=== PATIENT | female | born 1990 | race Caucasian/White ===

== ENCOUNTER 2017-08-14 12:08 | Emergency (ER) | payer BC, MEDICARE ==
--- NOTE | 2017-08-14 13:51 | EDM.PDOC ---
ED HPI GENERAL MEDICAL PROBLEM - General Chief Complaint: ENT Problem Stated Complaint: TOOTH PAIN/PROBLEM Time Seen by Provider: 08/14/17 12:18 Source of Information: Reports: Patient History Limitations: Reports: No Limitations - History of Present Illness INITIAL COMMENTS - FREE TEXT/NARRATIVE: The patient presents with left lower jaw abscess and dental pain. This has stared a few weeks ago. She has drainage from it. She has chills but no fever. She has no dentist in town. She is currently 26 weeks . She will be seeing Dr Greenfield in a few weeks. She has been having more cramping lately but no spotting or discharge. She is feeling the baby move. She has some dysuria lately at the end of urinating. She has no appetite and some nausea at times. Onset: Gradual Duration: Day(s): Quality: Reports: Sharp Severity: Moderate Improves with: Reports: None Worsens with: Reports: None Associated Symptoms: Reports: Other (Cramping) Left Middle Tooth/Teeth Pain Score (Numeric/FACES): 8 - Related Data Allergies Allergy/AdvReac Type Severity Reaction Status Date / Time No Known Allergies Allergy Verified 08/14/17 12:22 Home Meds: Home Meds Penicillin V Potassium 500 mg PO Q6HR #40 tab 08/14/17 [Rx] Past Medical History - Past Health History Medical/Surgical History: Denies Medical/Surgical History Social & Family History - Tobacco Use Smoking Status *Q: Never Smoker - Caffeine Use Caffeine Use: Reports: None - Recreational Drug Use Recreational Drug Use: No ED ROS ENT - Review of Systems Review Of Systems: See Below Constitutional: Reports: Chills. Denies: Fever HEENT: Reports: No Symptoms Respiratory: Reports: No Symptoms Cardiovascular: Reports: No Symptoms Endocrine: Reports: No Symptoms GI/Abdominal: Reports: Abdominal Pain (Cramping), Nausea : Reports: Dysuria Musculoskeletal: Reports: No Symptoms Skin: Reports: No Symptoms ED EXAM, ENT - Physical Exam Exam: See Below Exam Limited By: No Limitations General Appearance: Alert, No Apparent Distress Ears: Normal External Exam Nose: Normal Inspection Mouth/Throat: Other (Erythema and edema to the left lower jaw near the canine tooth) Head: Atraumatic, Normocephalic Neck: Normal Inspection Respiratory/Chest: No Respiratory Distress, Lungs Clear, Normal Breath Sounds Cardiovascular: Regular Rate, Rhythm, No Edema, No Murmur GI/Abdominal: Soft, Non-Tender, No Mass, Other (Gravid uterus) Back: Normal Inspection Extremities: Normal Inspection Course - Vital Signs Last Recorded V/S: Last Vital Signs Temp 97.8 F 08/14/17 12:19 Pulse 88 08/14/17 12:19 Resp 16 08/14/17 12:19 BP 122/83 08/14/17 12:19 Pulse Ox 100 08/14/17 12:19 - Orders/Labs/Meds Orders: Active Orders 24 hr Category Date Time Status UA W/MICROSCOPIC [URIN] Stat Lab 08/14/17 13:10 Ordered Labs: Laboratory Tests 08/14/17 08/14/17 08/14/17 Range/Units 12:58 12:58 13:10 WBC 7.94 (3.98-10.04) K/mm3 RBC 4.06 (3.98-5.22) M/mm3 Hgb 12.5 (11.2-15.7) gm/L Hct 36.6 (34.1-44.9) % MCV 90.1 (79.4-94.8) fl MCH 30.8 (25.6-32.2) pg MCHC 34.2 (32.2-35.5) g/dl RDW Std Deviation 46.5 H (36.4-46.3) fL Plt Count 163 L (182-369) K/mm3 MPV 10.5 (9.4-12.3) fl Neut % (Auto) 61.9 (34.0-71.1) % Lymph % (Auto) 28.7 (19.3-51.7) % [place] % (Auto) 7.7 (4.7-12.5) % Eos % (Auto) 0.9 (0.7-5.8) Baso % (Auto) 0.3 (0.1-1.2) % Neut # (Auto) 4.92 (1.56-6.13) K/mm3 Lymph # (Auto) 2.28 (1.18-3.74) K/mm3 [place] # (Auto) 0.61 H (0.24-0.36) K/mm3 Eos # (Auto) 0.07 (0.04-0.36) K/mm3 Baso # (Auto) 0.02 (0.01-0.08) K/mm3 Sodium 137 (136-145) mEq/L Potassium 3.6 (3.5-5.1) mEq/L Chloride 104 (98-107) mEq/L Carbon Dioxide 22 (21-32) mEq/L Anion Gap 14.6 (5-15) BUN 10 (7-18) mg/dL Creatinine 0.6 (0.55-1.02) mg/dL Est Cr Clr Drug Dosing 121.62 mL/min Estimated GFR (MDRD) > 60 (>60) mL/min BUN/Creatinine Ratio 16.7 (14-18) Glucose 89 (74-106) mg/dL Calcium 8.5 (8.5-10.1) mg/dL Total Bilirubin 0.3 (0.2-1.0) mg/dL AST 16 (15-37) U/L ALT 31 (14-59) U/L Alkaline Phosphatase 71 (46-116) U/L Total Protein 6.3 L (6.4-8.2) g/dl Albumin 2.6 L (3.4-5.0) g/dl Globulin 3.7 gm/dL Albumin/Globulin Ratio 0.7 L (1-2) Urine Color Yellow (Yellow) Urine Appearance Clear (Clear) Urine pH 6.0 (5.0-8.0) Ur Specific [place] > or = 1.030 (1.005-1.030) Urine Protein Negative (Negative) Urine Glucose (UA) Negative (Negative) Urine Ketones Negative (Negative) Urine Occult Blood Negative (Negative) Urine Nitrite Negative (Negative) Urine Bilirubin Negative (Negative) Urine Urobilinogen 0.2 (0.2-1.0) Ur Leukocyte Esterase Negative (Negative) Urine RBC 0-5 (0-5) /hpf Urine WBC 0-5 (0-5) /hpf Ur Epithelial Cells 0-5 (0-5) /hpf Urine Bacteria Not seen (FEW) /hpf Urine Mucus Not seen (FEW) /hpf - Re-Assessments/Exams Free Text/Narrative Re-Assessment/Exam: 08/14/17 13:51 I ordered some labs and a UA. 08/14/17 13:57 Her CBC and CMP look good. Her UA shows no UTI. FHTs were 148. I will get her on some pen VK and follow up with Dr Greenfield. Departure - Departure Time of Disposition: 14:00 Disposition: Home, Self-Care 01 Condition: Good Clinical Impression: Dental abscess - Discharge Information Prescriptions: Penicillin V Potassium 500 mg PO Q6HR #40 tab Referrals: Cary Greenfield MD [Primary Care Provider] - Forms: ED Department Discharge Additional Instructions: Take the penicillin VK 1 pill 4 times per day for 10 days. Take tylenol for the pain. Please return if you are worse. - My Orders Last 24 Hours: My Active Orders 08/14/17 13:10 UA W/MICROSCOPIC [URIN] Stat - Assessment/Plan Last 24 Hours: My Active Orders 08/14/17 13:10 UA W/MICROSCOPIC [URIN] Stat
== END 2017-08-14 14:05 | disposition home or self-care (01) ==
LOC: JD.ED 12:08
DX: K04.7 Periapical abscess without sinus (principal)
CPT/HCPCS: 36415; 80053; 81001; 85025; 99283

== ENCOUNTER 2017-11-17 17:00 | Inpatient (IN) | payer MEDICARE, MEDICAID ==
[2017-11-17] MEDS ORDERED: Nalbuphine 20 MG/ML 1 ML Syringe IVPUSH PRN (17:45)
[2017-11-17] MEDS ORDERED: Sodium Chloride 0.9% 10 ML Syringe FLUSH PRN (17:45)
[2017-11-17] MEDS ORDERED: Ondansetron 4 MG/2 ML SDV IVPUSH PRN ×2 (17:45→20:43)
[2017-11-17] MEDS ORDERED: Oxytocin/Lactated Ringers 10 UNIT/1,000 ML BAG IV SCH ×2 (17:45)
--- NOTE | 2017-11-17 18:04 | PCM.HP ---
H&P History of Present Illness - General Date of Service: 11/17/17 Source of Information: Patient History Limitations: Reports: No Limitations - History of Present Illness Onset of Symptoms: Reports: Today - Related Data Allergies/Adverse Reactions: Allergies Allergy/AdvReac Type Severity Reaction Status Date / Time No Known Allergies Allergy Verified 10/29/17 00:38 Home Medications: Home Meds Penicillin V Potassium 500 mg PO Q6HR #40 tab 08/14/17 [Rx] Past Medical History - Past Health History Medical/Surgical History: Denies Medical/Surgical History Social & Family History - Caffeine Use Caffeine Use: Reports: None Exam - Vital Signs Weight: 202 lb
--- NOTE | 2017-11-17 18:25 | PCM.SN ---
<Hillary Mcguire - Last Filed: 11/17/17 18:28> - Free Text/Narrative Note: 26 year old presents today with SROM. GA 40 weeks 0 days with JUAN of based on ultrasound. She is currently only having mild, inconsistent contractions. She desires an epidural with this delivery. At her last visit on 11/15 she was 3 cm dilated, 50% effaced, at -2 position. BP 114/74. heart rate 140 bpm. She is GBS negative and rubella immune. Blood type O negative. She is negative for HIV, Hep B, syphilis, chlamydia, and gonorrhea. She initiated care with Dr. Greenfield on 2017 - she had been seen for care in [place] prior to that. She had rhogram at that time. She reports a MRSA infection in May of this year. She has had no other complications during the and reports no other medical conditions. Her only current medication is a vitamin. She denies significant PMH or FH. She is currently living in [place]. She has had two previous pregnancies and deliveries, a girl born in 2008 at 40 weeks 3 days and a boy born in 2012 at 39 weeks 6 days. Both occurred via spontaneous vaginal delivery and were uncomplicated. She had epidurals with both. Plan: Continue standard OB care Initiate pitocin Epidural during delivery Rh- plan for rhogram following delivery Hillary Mcguire, MS-3. Dr. Yañez has examined the patient and reviewed the plan. <Helen Yañez - Last Filed: 11/17/17 18:38> - Free Text/Narrative Note: Exam: Vitals reviewed FHT 150 TOCOq 2-3 HEENT: NCAT Resp: Unlabored CV: S1S2 Abd: Gravid, non-tender See plan above
[2017-11-17] MEDS ORDERED: diphenhydrAMINE 50 MG/ML SDV IVPUSH PRN (20:43)
[2017-11-17] MEDS ORDERED: fentaNYL 100 MCG/2 ML SDV EPIDUR PRN (20:43)
[2017-11-17] MEDS ORDERED: ePHEDrine 50 MG/ML SDV IVPUSH PRN (20:43)
[2017-11-17] MEDS ORDERED: Bupivacaine/fentaNYL/NS 100 ML Bag EPIDUR SCH (20:45)
[2017-11-17] MEDS ORDERED: Bupivacaine 0.25% 10 ML SDV ONE (22:00)
[2017-11-17] MEDS: Lactated Ringers 1,000 ML IV SCH ×2 (22:25→23:30)
--- NOTE | 2017-11-17 23:51 | PCM.PREANE ---
Preanesthetic Assessment - Anesthesia/Transfusion/Family Hx Anesthesia History: Prior Anesthesia Without Reaction Family History of Anesthesia Reaction: No - Review of Systems General: No Symptoms Pulmonary: No Symptoms Cardiovascular: No Symptoms Gastrointestinal: Other (GERD) Neurological: No Symptoms Other: Reports: None - Physical Assessment Pulse: 83 O2 Sat by Pulse Oximetry: 98 Respiratory Rate: 18 Blood Pressure: 133/75 Temperature: 36.4 C Height: 1.63 m Weight: 91.626 kg ASA Class: 2 Mental Status: Alert & Oriented x3 Airway Class: Mallampati = 1 Dentition: Reports: Normal Dentition Thyro-Mental Finger Breadths: 3 Mouth Opening Finger Breadths: 3 ROM/Head Extension: Full Lungs: Clear to Auscultation, Normal Respiratory Effort Cardiovascular: Regular Rate, Regular Rhythm - Lab Values: Laboratory Last Values WBC 9.55 K/mm3 (3.98-10.04) 11/17/17 19:13 RBC 4.10 M/mm3 (3.98-5.22) 11/17/17 19:13 Hgb 12.4 gm/L (11.2-15.7) 11/17/17 19:13 Hct 37.1 % (34.1-44.9) 11/17/17 19:13 MCV 90.5 fl (79.4-94.8) 11/17/17 19:13 MCH 30.2 pg (25.6-32.2) 11/17/17 19:13 MCHC 33.4 g/dl (32.2-35.5) 11/17/17 19:13 RDW Std Deviation 48.8 fL (36.4-46.3) H 11/17/17 19:13 Plt Count 173 K/mm3 (182-369) L 11/17/17 19:13 MPV 10.9 fl (9.4-12.3) 11/17/17 19:13 Neut % (Auto) 71.9 % (34.0-71.1) H 11/17/17 19:13 Lymph % (Auto) 21.2 % (19.3-51.7) 11/17/17 19:13 [place] % (Auto) 5.8 % (4.7-12.5) 11/17/17 19:13 Eos % (Auto) 0.5 (0.7-5.8) L 11/17/17 19:13 Baso % (Auto) 0.2 % (0.1-1.2) 11/17/17 19:13 Neut # (Auto) 6.87 K/mm3 (1.56-6.13) H 11/17/17 19:13 Lymph # (Auto) 2.02 K/mm3 (1.18-3.74) 11/17/17 19:13 [place] # (Auto) 0.55 K/mm3 (0.24-0.36) H 11/17/17 19:13 Eos # (Auto) 0.05 K/mm3 (0.04-0.36) 11/17/17 19:13 Baso # (Auto) 0.02 K/mm3 (0.01-0.08) 11/17/17 19:13 - Allergies Allergies/Adverse Reactions: Allergies Allergy/AdvReac Type Severity Reaction Status Date / Time No Known Allergies Allergy Verified 10/29/17 00:38 - Acknowledgements Anesthesia Type Planned: Epidural Pt an Appropriate Candidate for the Planned Anesthesia: Yes Alternatives and Risks of Anesthesia Discussed w Pt/Guardian: Yes Pt/Guardian Understands and Agrees with Anesthesia Plan: Yes Additional Comments: Residual numbness from previous epidural that went down her leg and a spot on her abdomen. Resolved after several weeks. Nancy understands that this may happen again. She wishes to proceed. PreAnesthesia Questionnaire - Past Health History Medical/Surgical History: Denies Medical/Surgical History - HOME MEDS Home Medications: Home Meds Penicillin V Potassium 500 mg PO Q6HR #40 tab 08/14/17 [Rx] - CURRENT (IN HOUSE) MEDS Current Meds: Current Medications Diphenhydramine HCl (Benadryl) 25 mg IVPUSH Q6H PRN PRN Reason: Pruritis Ephedrine Sulfate (Ephedrine Sulfate) 5 mg IVPUSH ASDIRECTED PRN PRN Reason: Hypotension Fentanyl (Sublimaze) 100 mcg EPIDUR ONETIME PRN PRN Reason: Pain Last Admin: 11/17/17 23:47 Dose: 100 mcg Fentanyl/Bupivacaine HCl (Fentanyl/Bupivacaine/Ns 2 Mcg-0.125% 100 Ml) 100 ml EPIDUR ASDIRECTED RADHA Last Admin: 11/17/17 23:47 Dose: 100 ml Lactated Ringer's (Ringers, Lactated) 1,000 mls @ 100 mls/hr IV ASDIRECTED RADHA Last Infusion: 11/17/17 22:28 Dose: 999 mls/hr Oxytocin/Lactated Ringer's (Pitocin In Lr 10 Units/1,000 Ml) 10 unit in 1,000 mls @ 12 mls/hr IV TITRATE RADHA; Protocol Oxytocin/Lactated Ringer's (Pitocin In Lr 10 Units/1,000 Ml) 10 unit in 1,000 mls @ 500 mls/hr IV .CONTINUOUS RADHA Nalbuphine HCl (Nubain) 10 mg IVPUSH Q2H PRN PRN Reason: pain Ondansetron HCl (Zofran) 4 mg IVPUSH Q4H PRN PRN Reason: Nausea/Vomiting Ondansetron HCl (Zofran) 4 mg IVPUSH ONETIME PRN PRN Reason: Nausea/Vomiting Sodium Chloride (Saline Flush) 10 ml FLUSH ASDIRECTED PRN PRN Reason: Keep Vein Open
--- NOTE | 2017-11-18 00:24 | PCM.PNLD ---
Labor Progress Note - VS & Meds Vital Signs: Last Vital Signs Temp 36.4 C 11/17/17 23:51 Pulse 83 11/17/17 23:51 Resp 18 11/17/17 23:51 BP 133/75 11/17/17 23:51 Pulse Ox 98 11/17/17 23:51 Active Medications: Current Medications Diphenhydramine HCl (Benadryl) 25 mg IVPUSH Q6H PRN PRN Reason: Pruritis Ephedrine Sulfate (Ephedrine Sulfate) 5 mg IVPUSH ASDIRECTED PRN PRN Reason: Hypotension Fentanyl (Sublimaze) 100 mcg EPIDUR ONETIME PRN PRN Reason: Pain Last Admin: 11/17/17 23:47 Dose: 100 mcg Fentanyl/Bupivacaine HCl (Fentanyl/Bupivacaine/Ns 2 Mcg-0.125% 100 Ml) 100 ml EPIDUR ASDIRECTED RADHA Last Admin: 11/17/17 23:47 Dose: 100 ml Lactated Ringer's (Ringers, Lactated) 1,000 mls @ 100 mls/hr IV ASDIRECTED RADHA Last Admin: 11/17/17 23:30 Dose: 999 mls/hr Oxytocin/Lactated Ringer's (Pitocin In Lr 10 Units/1,000 Ml) 10 unit in 1,000 mls @ 12 mls/hr IV TITRATE RADHA; Protocol Oxytocin/Lactated Ringer's (Pitocin In Lr 10 Units/1,000 Ml) 10 unit in 1,000 mls @ 500 mls/hr IV .CONTINUOUS RADHA Nalbuphine HCl (Nubain) 10 mg IVPUSH Q2H PRN PRN Reason: pain Ondansetron HCl (Zofran) 4 mg IVPUSH Q4H PRN PRN Reason: Nausea/Vomiting Ondansetron HCl (Zofran) 4 mg IVPUSH ONETIME PRN PRN Reason: Nausea/Vomiting Sodium Chloride (Saline Flush) 10 ml FLUSH ASDIRECTED PRN PRN Reason: Keep Vein Open - Uterine Contractions Uterine Monitoring Mode: External [place] Contraction Intensity: Moderate to Strong - Monitoring Monitor Mode: External Ultrasound Heart Rate (FHR) Per Doppler: 140 Heart Rate (FHR) Variability: Moderate (6-25 bmp) Accelerations: Present, 15x15 Decelerations: None Strip Review: Category I - Vaginal Exam Dilation (cm): 6 Effacement (Percent): 70 Station: -3 Cervical Position: Midposition - Labor Progress (Free Text) Labor Progress: AROM of forebag Clear fluid. Anticipate
[2017-11-18] MEDS: Lactated Ringers 1,000 ML IV SCH (01:01)
--- NOTE | 2017-11-18 03:50 | PCM.SN ---
- Free Text/Narrative Note: Stage I - Patient presented with spontaneous rupture of membranes clear fluid. Progressed to complete with overall reassuring heart tones. Epidural anesthesia. Stage II - of viable female, 7#4 oz, 11/05 at 331. Head delivered in controlled manner over intact perineum. Body and shoulders followed atraumatically. Baby to maternal abdomen. Positive cry. Cord clamped and cut. Cord blood collected. Family unwilling to support policy of no video and did film entire procedure although had signed form agreeing not to. Stage III - of intact placenta. 3vc. No lacerations. EBL 200.
[2017-11-18] MEDS ORDERED: Docusate Sodium 100 MG Cap PO PRN (04:59)
[2017-11-18] MEDS ORDERED: Lanolin 100% Cream 7 GM Tube TOP PRN (04:59)
[2017-11-18] MEDS ORDERED: Hydrocortisone Acetate 25 MG Supp RECTAL PRN (04:59)
[2017-11-18] MEDS ORDERED: Witch Hazel Medicated Pads 100/Jar TOP PRN (04:59)
[2017-11-18] MEDS ORDERED: Benzocaine/Menthol 20%-0.5% Spray 56 GM Canister TOP PRN (04:59)
[2017-11-18] MEDS ORDERED: Ibuprofen 200 MG Tab PO PRN (06:39)
[2017-11-18] MEDS: Ibuprofen 600 MG Tab PO PRN (13:48)
[2017-11-19] MEDS: Ibuprofen 600 MG Tab PO PRN (01:33)
--- NOTE | 2017-11-19 07:33 | PCM.DCSUM1 ---
Discharge Summary - Hospital Course Diagnosis: Stroke: No - Discharge Data Discharge Date: 11/19/17 Discharge Disposition: Home, Self-Care 01 Condition: Good - Patient Instructions Diet: Usual Diet as Tolerated Activity: No Strenuous Activities Activity, Other: pelvic Driving: May Drive Today Showering/Bathing: May Shower Notify Provider of: Fever, Increased Pain, Swelling and Redness, Drainage, Nausea and/or Vomiting - Discharge Plan *PRESCRIPTION DRUG MONITORING PROGRAM REVIEWED*: No *COPY OF PRESCRIPTION DRUG MONITORING REPORT IN PATIENT LUIS: No Home Medications: Home Meds Penicillin V Potassium 500 mg PO Q6HR #40 tab 08/14/17 [Rx] - Discharge Summary/Plan Comment DC Time >30 min.: No - General Info Date of Service: 11/19/17 Functional Status: Reports: Pain Controlled - Review of Systems General: Reports: No Symptoms HEENT: Reports: No Symptoms Pulmonary: Reports: No Symptoms Cardiovascular: Reports: No Symptoms Gastrointestinal: Reports: No Symptoms Genitourinary: Reports: No Symptoms Musculoskeletal: Reports: No Symptoms Skin: Reports: No Symptoms Neurological: Reports: No Symptoms Psychiatric: Reports: No Symptoms - Patient Data Vitals - Most Recent: Last Vital Signs Temp 36.5 C 11/19/17 03:11 Pulse 80 11/19/17 03:11 Resp 14 11/19/17 03:11 BP 117/81 11/19/17 03:11 Pulse Ox 98 11/19/17 03:11 Weight - Most Recent: 91.626 kg Lab Results - Last 24 hrs: Laboratory Results - last 24 hr 11/17/17 11/18/17 Range/Units 19:13 08:48 RPR Non-reactive (NONREACTIVE) Blood Type O NEGATIVE Gel Antibody Screen Negative Screen 0 ros/5 flds - neg RhIG Candidate? Yes Rhogam Indicated Yes, baby rh pos H Med Orders - Current: Current Medications Benzocaine/Menthol (Dermoplast Pain Relief [place]) 0 gm TOP ASDIRECTED PRN PRN Reason: Perineal Comfort Measure Docusate Sodium (Colace) 100 mg PO BID PRN PRN Reason: Constipation Emollient Ointment (Lansinoh Hpa) 0 gm TOP ASDIRECTED PRN PRN Reason: Sore Nipples Last Admin: 11/19/17 01:34 Dose: 1 tube Hydrocortisone Acetate (Anucort-Hc) 25 mg RECTAL BID PRN PRN Reason: Hemorrhoid pain Ibuprofen (Motrin) 600 mg PO Q4H PRN PRN Reason: Pain Last Admin: 11/19/17 01:33 Dose: 600 mg Witch Ting (Tucks) 1 pad TOP ASDIRECTED PRN PRN Reason: Hemorrhoid pain Discontinued Medications Diphenhydramine HCl (Benadryl) 25 mg IVPUSH Q6H PRN PRN Reason: Pruritis Ephedrine Sulfate (Ephedrine Sulfate) 5 mg IVPUSH ASDIRECTED PRN PRN Reason: Hypotension Fentanyl (Sublimaze) 100 mcg EPIDUR ONETIME PRN PRN Reason: Pain Last Admin: 11/17/17 23:47 Dose: 100 mcg Fentanyl/Bupivacaine HCl (Fentanyl/Bupivacaine/Ns 2 Mcg-0.125% 100 Ml) 100 ml EPIDUR ASDIRECTED RADHA Last Admin: 11/17/17 23:47 Dose: 100 ml Lactated Ringer's (Ringers, Lactated) 1,000 mls @ 100 mls/hr IV ASDIRECTED RADHA Last Admin: 11/18/17 01:01 Dose: 100 mls/hr Oxytocin/Lactated Ringer's (Pitocin In Lr 10 Units/1,000 Ml) 10 unit in 1,000 mls @ 12 mls/hr IV TITRATE RADHA; Protocol Oxytocin/Lactated Ringer's (Pitocin In Lr 10 Units/1,000 Ml) 10 unit in 1,000 mls @ 500 mls/hr IV .CONTINUOUS RADHA Last Admin: 11/18/17 03:30 Dose: 500 mls/hr Ibuprofen (Motrin) 600 mg PO Q4H PRN PRN Reason: Pain Last Admin: 11/18/17 06:30 Dose: 600 mg Nalbuphine HCl (Nubain) 10 mg IVPUSH Q2H PRN PRN Reason: pain Ondansetron HCl (Zofran) 4 mg IVPUSH Q4H PRN PRN Reason: Nausea/Vomiting Ondansetron HCl (Zofran) 4 mg IVPUSH ONETIME PRN PRN Reason: Nausea/Vomiting Sodium Chloride (Saline Flush) 10 ml FLUSH ASDIRECTED PRN PRN Reason: Keep Vein Open - Exam General: Reports: Alert, Oriented HEENT: Reports: Pupils Equal, Pupils Reactive, EOMI, Mucous Membr. Moist/[employer] Neck: Reports: Supple Lungs: Reports: Clear to Auscultation, Normal Respiratory Effort Cardiovascular: Reports: Regular Rate, Regular Rhythm GI/Abdominal Exam: Normal Bowel Sounds, Soft, Non-Tender, No Organomegaly, No Distention, No Abnormal Bruit, No Mass, Pelvis Stable (Female) Exam: Normal External Exam Back Exam: Reports: Normal Inspection, Full Range of Motion Extremities: Normal Inspection, Normal Range of Motion, Non-Tender, No Pedal Edema, Normal Capillary Refill Skin: Reports: Warm, Dry, Intact Wound/Incisions: Reports: Healing Well Neurological: Reports: No New Focal Deficit Psy/Mental Status: Reports: Alert, Normal Affect, Normal Mood
--- NOTE | 2017-11-19 18:52 | PCM48HPAN ---
Post Anesthesia Note - EVALUATION WITHIN 48HRS OF ANESTHETIC Vital Signs in Normal Range: Yes Patient Participated in Evaluation: Yes Respiratory Function Stable: Yes Airway Patent: Yes Cardiovascular Function Stable: Yes Hydration Status Stable: Yes Pain Control Satisfactory: Yes Nausea and Vomiting Control Satisfactory: Yes Mental Status Recovered: Yes - COMMENTS/OBSERVATIONS Free Text/Narrative:: Spoke with Dr. Yañez and nursing staff. No complications noted. Patient discharged home.
--- NOTE | 2017-11-23 13:38 | PCM.LDHP ---
L&D History of Present Illness - General Date of Service: 11/17/17 Admit Problem/Dx: Admission Diagnosis/Problem Admission Diagnosis/Problem Source of Information: Patient History Limitations: Reports: No Limitations - History of Present Illness Introduction:: 26 year old presents today with SROM. GA 40 weeks 0 days with JUAN of based on ultrasound. She is currently only having mild, inconsistent contractions. She desires an epidural with this delivery. At her last visit on 11/15 she was 3 cm dilated, 50% effaced, at -2 position. BP 114/74. heart rate 140 bpm. She is GBS negative and rubella immune. Blood type O negative. She is negative for HIV, Hep B, syphilis, chlamydia, and gonorrhea. She initiated care with Dr. Greenfield on 2017 - she had been seen for care in [place] prior to that. She had rhogram at that time. She reports a MRSA infection in May of this year. She has had no other complications during the and reports no other medical conditions. Her only current medication is a vitamin. She denies significant PMH or FH. She is currently living in [place]. She has had two previous pregnancies and deliveries, a girl born in 2008 at 40 weeks 3 days and a boy born in 2012 at 39 weeks 6 days. Both occurred via spontaneous vaginal delivery and were uncomplicated. She had epidurals with both. 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 Was treated for this and has had 2 negative swabs with most recent being 2017. Is on contact precautions however due to it not being 1 year since treatment and first neg screening. - Past Surgical History Head Surgeries/Procedures: Reports: None HEENT Surgical History: Reports: None Cardiovascular Surgical History: Reports: None Respiratory Surgical History: Reports: None GI Surgical History: Reports: None Female Surgical History: Reports: None Endocrine Surgical History: Reports: None Neurological Surgical History: Reports: None Musculoskeletal Surgical History: Reports: None Oncologic Surgical History: Reports: None Dermatological Surgical History: Reports: None Social & Family History - Family History Family Medical History: Noncontributory - Tobacco Use Smoking Status *Q: Never Smoker - Caffeine Use Caffeine Use: Reports: None - Recreational Drug Use Recreational Drug Use: No H&P Review of Systems - Review of Systems: Review Of Systems: See Below General: Reports: No Symptoms HEENT: Reports: No Symptoms Pulmonary: Reports: No Symptoms Cardiovascular: Reports: No Symptoms Gastrointestinal: Reports: No Symptoms Genitourinary: Reports: No Symptoms Musculoskeletal: Reports: No Symptoms Skin: Reports: No Symptoms Psychiatric: Reports: No Symptoms Neurological: Reports: No Symptoms Hematologic/Lymphatic: Reports: No Symptoms Immunologic: Reports: No Symptoms L&D Exam - Exam Exam: See Below - Vital Signs Vital Signs: Last Vital Signs Temp 36.3 C 11/19/17 08:20 Pulse 76 11/19/17 08:20 Resp 16 11/19/17 08:20 BP 111/70 11/19/17 08:20 Pulse Ox 100 11/19/17 08:20 Weight: 91.626 kg - OB Specific Contraction Intensity: Moderate to Strong Heart Rate (FHR) Variability: Moderate (6-25 bmp) - Wallace Score Wallace Score Effacement: 51-70% Wallace Score Dilation: > 5 cm Wallace Score Infant's Station: -2 - Exam General: Alert, Oriented HEENT: PERRLA, Conjunctiva Clear, EACs Clear, EOMI, Hearing Intact, Mucosa Moist & Bootjack, Nares Patent, Normal Nasal Septum, Posterior Pharynx Clear, TMs Clear Neck: Supple, Trachea Midline Lungs: Clear to Auscultation, Normal Respiratory Effort Cardiovascular: Regular Rate, Regular Rhythm GI/Abdominal Exam: Normal Bowel Sounds, Soft, Non-Tender, No Organomegaly, No Distention, No Abnormal Bruit, No Mass, Pelvis Stable Back Exam: Normal Inspection, Full Range of Motion Extremities: Normal Inspection, Normal Range of Motion, Non-Tender, No Pedal Edema, Normal Capillary Refill Skin: Warm, Dry, Intact Neurological: Cranial Nerves Intact, Reflexes Equal Bilateral Psychiatric: Alert, Normal Affect, Normal Mood - Patient Data Result Diagrams: 11/17/17 19:13 Problem List Initiated/Reviewed/Updated: Yes Assessment/Plan Comment:: Term labor. Anesthesia per patient request CBC/T&S Anticipate
== END 2017-11-19 11:00 | disposition home or self-care (01) | DRG 775 ==
LOC: JD.OBCHECK 17:00 → JD.OB 17:45 → OBSVTOIN 11-18 03:29 → JD.MS 11-18 03:30 → JD.OB 11-18 12:40 → JD.MS 11-19 10:50 → UNDODISIN 11-19 11:00
PROVIDERS: ADMIT Obstetrics & Gynecology; ATTEND Obstetrics & Gynecology
PROC: 00HU33Z Insertion of Infusion Device into Spinal Canal, Percutaneous Approach (ICD-10-PCS; 2017-11-17)
PROC: 3E0R3BZ Introduction of Anesthetic Agent into Spinal Canal, Percutaneous Approach (ICD-10-PCS; 2017-11-17)
PROC: 6A550ZT Pheresis of Cord Blood Stem Cells, Single (ICD-10-PCS; principal; 2017-11-18)
PROC: 10E0XZZ Delivery of Products of Conception, External Approach (ICD-10-PCS; principal; 2017-11-18)
PROC: 3E0234Z Introduction of Serum, Toxoid and Vaccine into Muscle, Percutaneous Approach (ICD-10-PCS; 2017-11-18)
DX: O26.893 Other specified pregnancy related conditions, third trimester (principal); Z37.0 Single live birth; Z67.41 Type O blood, Rh negative; Z3A.40 40 weeks gestation of pregnancy; Z34.83 Encounter for supervision of other normal pregnancy, third trimester; Z86.14 Personal history of Methicillin resistant Staphylococcus aureus infection
CPT/HCPCS: 36415; 51702; 59025; 59409; 85025; J3010; J3490; J7120 ×3; 36430; 85461; 86592; 86850; 86900; 86901; A9270-GY; J2590; J2790

== ENCOUNTER 2018-03-26 11:29 | Emergency (ER) | payer MEDICAID, MEDICARE ==
[2018-03-26] MEDS ORDERED: Ondansetron 4 MG/2 ML SDV IVPUSH ONE (11:46)
[2018-03-26] MEDS ORDERED: Sodium Chloride 0.9% 10 ML Syringe FLUSH PRN (11:46)
[2018-03-26] MEDS ORDERED: Sodium Chloride 0.9% 1,000 ML IV ONE ×2 (11:46→13:32)
[2018-03-26] MEDS ORDERED: Ketorolac 30 MG/ML SDV IVPUSH ONE (11:46)
--- NOTE | 2018-03-26 12:29 | EDM.PDOC ---
ED HPI GENERAL MEDICAL PROBLEM - General Chief Complaint: Flank Pain Stated Complaint: ABDOMINAL/FLANK PAIN AND NAUSEA Time Seen by Provider: 03/26/18 11:41 Source of Information: Reports: Patient History Limitations: Reports: No Limitations - History of Present Illness INITIAL COMMENTS - FREE TEXT/NARRATIVE: The patient is a 27-year-old female with a known history of cholelithiasis who is been waiting to have a cholecystectomy until she finishes dealing with an abscessed tooth who comes in with vomiting and abdominal pain since last evening. She started yet pain in her right upper abdomen radiating to her back after dinner last night. Since that she's had many episodes of vomiting. She is not tolerating oral liquids. No diarrhea. She tried to eat some cereal last night and vomited. She later tried to eat some toast and again vomited. Her pain is currently sharp, moderate severity, worse with movement, better with rest. No fever. No diarrhea. No cough or difficulty breathing. She's noticed that her urine is very dark and her eyes seem a little bit yellow. 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: Acetaminophen, NSAIDS Right Upper Abdomen Pain Score (Numeric/FACES): 10 - Related Data Allergies Allergy/AdvReac Type Severity Reaction Status Date / Time No Known Allergies Allergy Verified 03/26/18 12:48 Home Meds: Home Meds Sertraline HCl [Zoloft] 20 mg PO DAILY 03/26/18 [History] oxyCODONE 5 mg PO ASDIRECTED PRN 03/26/18 [History] Past Medical History - Past Health History Medical/Surgical History: Denies Medical/Surgical History HEENT History: Reports: None, Impaired Vision Cardiovascular History: Reports: None Respiratory History: Reports: Bronchitis, Recurrent Gastrointestinal History: Reports: Cholelithiasis, GERD Genitourinary History: Reports: Renal Calculus 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 Was treated for this and has had 2 negative swabs with most recent being 2017. Is on contact precautions however due to it not being 1 year since treatment and first neg screening. - Past Surgical History Head Surgeries/Procedures: Reports: None HEENT Surgical History: Reports: None, Oral Surgery Cardiovascular Surgical History: Reports: None Respiratory Surgical History: Reports: None GI Surgical History: Reports: None Female Surgical History: Reports: Other (See Below) Other Female Surgeries/Procedures: control implant Endocrine Surgical History: Reports: None Oncologic Surgical History: Reports: None Dermatological Surgical History: Reports: None Social & Family History - Family History Family Medical History: Noncontributory Cardiac: Reports: CAD, Hypertension, Stent Endocrine/Metabolic: Reports: Diabetes, Gestational - Tobacco Use Smoking Status *Q: Never Smoker - Caffeine Use Caffeine Use: Reports: Coffee, Energy Drinks, Soda - Recreational Drug Use Recreational Drug Use: No ED ROS GENERAL - Review of Systems Review Of Systems: See Below Constitutional: Denies: Fever HEENT: Reports: No Symptoms Respiratory: Denies: Shortness of Breath Cardiovascular: Denies: Chest Pain Endocrine: Reports: No Symptoms GI/Abdominal: Reports: Abdominal Pain : Denies: Flank Pain Musculoskeletal: Reports: No Symptoms Skin: Reports: No Symptoms Neurological: Reports: No Symptoms Psychiatric: Reports: No Symptoms ED EXAM, GI/ABD - Physical Exam Exam: See Below Exam Limited By: No Limitations General Appearance: Alert, WD/WN, Mild Distress Eyes: Bilateral: Normal Appearance Ears: Normal External Exam Nose: Normal Inspection Throat/Mouth: Normal Inspection, Normal Oropharynx, Normal Voice Head: Atraumatic, Normocephalic Neck: Normal Inspection, Supple, Non-Tender Respiratory/Chest: No Respiratory Distress, Lungs Clear, Normal Breath Sounds Cardiovascular: Normal Peripheral Pulses, Regular Rate, Rhythm, No Edema GI/Abdominal Exam: Soft, Other (diffuse TTP, most tender in RUQ, no rebound/ guarding ) Back Exam: Normal Inspection Extremities: Normal Inspection Neurological: Alert, Oriented, Normal Cognition, No Motor/Sensory Deficits Psychiatric: Normal Affect, Normal Mood Skin Exam: Warm, Dry, Intact, Normal Color, No Rash Course - Vital Signs Last Recorded V/S: Last Vital Signs Temp 36.3 C 03/26/18 11:48 Pulse 105 H 03/26/18 11:48 Resp 16 03/26/18 11:48 BP 138/103 H 03/26/18 11:48 Pulse Ox 98 03/26/18 11:48 Orthostatic Blood Pressure [ 128/90 Standing] Orthostatic Blood Pressure [ 127/104 Sitting] Orthostatic Blood Pressure [ 125/99 Supine] - Orders/Labs/Meds Orders: Active Orders 24 hr Category Date Time Status Peripheral IV Care [RC] . DIRECTED Care 03/26/18 11:46 Active Peripheral IV Care [RC] . DIRECTED Care 03/26/18 11:46 Active Sodium Chloride 0.9% [Saline Flush] Med 03/26/18 11:46 Active 10 ml FLUSH ASDIRECTED PRN cefTRIAXone [Rocephin] Med 03/26/18 17:15 Active 2 gm IVPUSH Q24H Peripheral IV Insertion Adult [OM.PC] Routine Oth 03/26/18 11:46 Ordered Medication Orders Ceftriaxone Sodium (Rocephin) 2 gm IVPUSH Q24H RADHA Sodium Chloride (Saline Flush) 10 ml FLUSH ASDIRECTED PRN PRN Reason: Keep Vein Open Last Admin: 03/26/18 12:14 Dose: 10 ml Labs: Laboratory Tests 03/26/18 03/26/18 03/26/18 Range/Units 11:40 11:40 11:45 WBC 7.45 (3.98-10.04) K/mm3 RBC 5.26 H (3.98-5.22) M/mm3 Hgb 14.6 (11.2-15.7) gm/L Hct 43.3 (34.1-44.9) % MCV 82.3 (79.4-94.8) fl MCH 27.8 (25.6-32.2) pg MCHC 33.7 (32.2-35.5) g/dl RDW Std Deviation 44.0 (36.4-46.3) fL Plt Count 227 (182-369) K/mm3 MPV 11.3 (9.4-12.3) fl Neut % (Auto) 75.1 H (34.0-71.1) % Lymph % (Auto) 17.0 L (19.3-51.7) % Windham % (Auto) 7.2 (4.7-12.5) % Eos % (Auto) 0.3 L (0.7-5.8) Baso % (Auto) 0.3 (0.1-1.2) % Neut # (Auto) 5.59 (1.56-6.13) K/mm3 Lymph # (Auto) 1.27 (1.18-3.74) K/mm3 Windham # (Auto) 0.54 H (0.24-0.36) K/mm3 Eos # (Auto) 0.02 L (0.04-0.36) K/mm3 Baso # (Auto) 0.02 (0.01-0.08) K/mm3 Sodium 141 (136-145) mEq/L Potassium 3.7 (3.5-5.1) mEq/L Chloride 106 (98-107) mEq/L Carbon Dioxide 20 L (21-32) mEq/L Anion Gap 18.7 H (5-15) BUN 10 (7-18) mg/dL Creatinine 0.8 (0.55-1.02) mg/dL Est Cr Clr Drug Dosing 90.41 mL/min Estimated GFR (MDRD) > 60 (>60) mL/min BUN/Creatinine Ratio 12.5 L (14-18) Glucose 128 H (74-106) mg/dL Calcium 9.3 (8.5-10.1) mg/dL Total Bilirubin 4.8 H (0.2-1.0) mg/dL AST 348 H (15-37) U/L ALT 1101 H (14-59) U/L Alkaline Phosphatase 232 H (46-116) U/L Total Protein 7.8 (6.4-8.2) g/dl Albumin 4.1 (3.4-5.0) g/dl Globulin 3.7 gm/dL Albumin/Globulin Ratio 1.1 (1-2) Lipase 148 (73-393) U/L Urine Color Phyllis H (Yellow) Urine Appearance Clear (Clear) Urine pH 6.0 (5.0-8.0) Ur Specific Sebastian > or = 1.030 (1.005-1.030) Urine Protein 1+ H (Negative) Urine Glucose (UA) Negative (Negative) Urine Ketones 2+ H (Negative) Urine Occult Blood Negative (Negative) Urine Nitrite Negative (Negative) Urine Bilirubin 3+ H (Negative) Urine Urobilinogen 4.0 H (0.2-1.0) Ur Leukocyte Esterase Negative (Negative) Urine RBC 0-5 (0-5) /hpf Urine WBC 0-5 (0-5) /hpf Ur Epithelial Cells 0-5 (0-5) /hpf Urine Bacteria Few (FEW) /hpf Urine Mucus Few (FEW) /hpf Urine HCG, Qual (NEGATIVE) 03/26/18 Range/Units 11:45 WBC (3.98-10.04) K/mm3 RBC (3.98-5.22) M/mm3 Hgb (11.2-15.7) gm/L Hct (34.1-44.9) % MCV (79.4-94.8) fl MCH (25.6-32.2) pg MCHC (32.2-35.5) g/dl RDW Std Deviation (36.4-46.3) fL Plt Count (182-369) K/mm3 MPV (9.4-12.3) fl Neut % (Auto) (34.0-71.1) % Lymph % (Auto) (19.3-51.7) % Windham % (Auto) (4.7-12.5) % Eos % (Auto) (0.7-5.8) Baso % (Auto) (0.1-1.2) % Neut # (Auto) (1.56-6.13) K/mm3 Lymph # (Auto) (1.18-3.74) K/mm3 Windham # (Auto) (0.24-0.36) K/mm3 Eos # (Auto) (0.04-0.36) K/mm3 Baso # (Auto) (0.01-0.08) K/mm3 Sodium (136-145) mEq/L Potassium (3.5-5.1) mEq/L Chloride (98-107) mEq/L Carbon Dioxide (21-32) mEq/L Anion Gap (5-15) BUN (7-18) mg/dL Creatinine (0.55-1.02) mg/dL Est Cr Clr Drug Dosing mL/min Estimated GFR (MDRD) (>60) mL/min BUN/Creatinine Ratio (14-18) Glucose (74-106) mg/dL Calcium (8.5-10.1) mg/dL Total Bilirubin (0.2-1.0) mg/dL AST (15-37) U/L ALT (14-59) U/L Alkaline Phosphatase (46-116) U/L Total Protein (6.4-8.2) g/dl Albumin (3.4-5.0) g/dl Globulin gm/dL Albumin/Globulin Ratio (1-2) Lipase (73-393) U/L Urine Color (Yellow) Urine Appearance (Clear) Urine pH (5.0-8.0) Ur Specific Sebastian (1.005-1.030) Urine Protein (Negative) Urine Glucose (UA) (Negative) Urine Ketones (Negative) Urine Occult Blood (Negative) Urine Nitrite (Negative) Urine Bilirubin (Negative) Urine Urobilinogen (0.2-1.0) Ur Leukocyte Esterase (Negative) Urine RBC (0-5) /hpf Urine WBC (0-5) /hpf Ur Epithelial Cells (0-5) /hpf Urine Bacteria (FEW) /hpf Urine Mucus (FEW) /hpf Urine HCG, Qual Negative (NEGATIVE) Meds: Medications Generic Name Dose Route Start Last Admin Trade Name Freq PRN Reason Stop Dose Admin Ceftriaxone Sodium 2 gm 03/26/18 17:15 Rocephin IVPUSH Q24H RADHA Sodium Chloride 10 ml 03/26/18 11:46 03/26/18 12:14 Saline Flush FLUSH 10 ml ASDIRECTED PRN Administration Keep Vein Open Discontinued Medications Generic Name Dose Route Start Last Admin Trade Name Freq PRN Reason Stop Dose Admin Sodium Chloride 1,000 mls @ 1,000 mls/hr 03/26/18 11:46 03/26/18 12:10 Normal Saline IV 03/26/18 12:45 1,000 mls/hr ONETIME ONE Administration Sodium Chloride 1,000 mls @ 1,000 mls/hr 03/26/18 13:32 03/26/18 13:36 Normal Saline IV 03/26/18 14:31 1,000 mls/hr ONETIME ONE Administration Ketorolac Tromethamine 30 mg 03/26/18 11:46 03/26/18 12:10 Toradol IVPUSH 03/26/18 11:47 30 mg ONETIME ONE Administration Ondansetron HCl 4 mg 03/26/18 11:46 03/26/18 12:09 Zofran IVPUSH 03/26/18 11:47 4 mg ONETIME ONE Administration - Re-Assessments/Exams Free Text/Narrative Re-Assessment/Exam: 03/26/18 15:17 Labs significant for elevated bilirubin at 4.8, transaminitis with ALTs/AST 300/ 1000, normal lipase at 150. She has a normal white blood cell count. Discussed with Dr. Thornton would like an update when the ultrasound is completed. 03/26/18 16:56 U/S shows common bile duct dilated to 1.0 cm. She has cholelithiasis. No ultrasound evidence of cholecystitis. Discussed findings with Dr. Thornton who notes she'll likely need ERCP and therefore suggests transfer to [facility] called at 16:57, she goes to [facility] here. 03/26/18 17:[address] Robles, direct support staff at [facility], who accepts the patient for transfer Departure - Departure Time of Disposition: 17:20 Disposition: DC/Tfer to [facility] 02 Clinical Impression: Biliary obstruction Cholelithiasis Qualifiers: Cholelithiasis location: gallbladder and bile duct Cholecystitis presence: without cholecystitis Biliary obstruction: with biliary obstruction Qualified Code(s): K80.71 - Calculus of gallbladder and bile duct without cholecystitis with obstruction - Discharge Information Referrals: Tabitha Joy PA-C [Primary Care Provider] - Forms: ED Department Discharge - My Orders Last 24 Hours: My Active Orders 03/26/18 11:46 Peripheral IV Care [RC] . DIRECTED Peripheral IV Care [RC] . DIRECTED Sodium Chloride 0.9% [Saline Flush] 10 ml FLUSH ASDIRECTED PRN Peripheral IV Insertion Adult [OM.PC] Routine 03/26/18 17:15 cefTRIAXone [Rocephin] 2 gm IVPUSH Q24H - Assessment/Plan Last 24 Hours: My Active Orders 03/26/18 11:46 Peripheral IV Care [RC] . DIRECTED Peripheral IV Care [RC] . DIRECTED Sodium Chloride 0.9% [Saline Flush] 10 ml FLUSH ASDIRECTED PRN Peripheral IV Insertion Adult [OM.PC] Routine 03/26/18 17:15 cefTRIAXone [Rocephin] 2 gm IVPUSH Q24H
--- NOTE | 2018-03-26 15:56 | US ---
Abdominal ultrasound multiple real-time images of the abdomen were obtained. Comparison: No prior abdominal imaging. Intrahepatic biliary ducts appear somewhat prominent. No focal abnormality appreciated within the liver. Gallstones are seen within the gallbladder. Gallbladder is somewhat dilated. Common bile duct mildly dilated up to 1.0 cm. Kidney show no hydronephrosis. Small echogenic area is noted within the upper right kidney possibly due to nonobstructing stone measuring 5 mm. Right kidney length is 11.2 cm and left kidney length is 10.7 cm. The aorta shows no aneurysm. Spleen size is normal. Pancreas is incompletely seen. Visualized portions of the pancreas are within normal limits. Impression: 1. Mild intrahepatic biliary duct dilatation is suggested as well as dilated common bile duct measuring up to 1.0 cm. Gallstones are seen within the gallbladder with gallbladder appearing slightly dilated. These findings could be further evaluated by MR cholangiogram study. 2. Possible nonobstructing stone within the upper right kidney. 3. No additional abnormality is appreciated on abdominal ultrasound exam. Diagnostic code #3
[2018-03-26] MEDS ORDERED: cefTRIAXone 2 GM Vial IVPUSH SCH (17:15)
== END 2018-03-26 18:20 ==
LOC: JD.ED 11:29
DX: K80.71 Calculus of gallbladder and bile duct without cholecystitis with obstruction (principal); F41.9 Anxiety disorder, unspecified; F32.9 Major depressive disorder, single episode, unspecified; Z79.899 Other long term (current) drug therapy
CPT/HCPCS: 36415; 76700; 80053; 81001; 81025; 83690; 85025; 96361; 96374; 96375; 99285; J0696; J1885; J2405; J7040

== ENCOUNTER 2018-08-02 21:10 | Emergency (ER) | payer MEDICAID ==
--- NOTE | 2018-08-02 21:35 | EDM.PDOC ---
ED HPI GENERAL MEDICAL PROBLEM - General Chief Complaint: ENT Problem Stated Complaint: swollen face Time Seen by Provider: 08/02/18 21:21 Source of Information: Reports: Patient, RN Notes Reviewed History Limitations: Reports: No Limitations - History of Present Illness INITIAL COMMENTS - FREE TEXT/NARRATIVE: Patient is a 27-year-old female who presents to the ED for the evaluation of a dental complaint. The patient states that she had a tooth pulled 3 days ago on the right lower portion of her jaw. She believes that she has dry socket at today's visit she notes that she rinsed her mouth with salt water as directed by the dentist, and she had immediate pain in that area, and noticed that the blood clot was no longer there after the rinse. She notes that her dentist is closed until Monday morning and cannot get in to see him before then. She did take some ibuprofen and Tylenol to see if this would help, and has provided a little bit of relief. She appreciates some mild swelling to the right lower portion of her jaw, with some pain that radiates down her neck. She notes that there has aggravate pain, and even talking hurts her as well. Right Lower Oral/Mouth Pain Score (Numeric/FACES): 10 - Related Data Allergies Allergy/AdvReac Type Severity Reaction Status Date / Time No Known Allergies Allergy Verified 03/26/18 12:48 Home Meds: Home Meds Acetaminophen/HYDROcodone [Ashley 325-5 MG] 1 tab PO Q6H PRN #12 tablet 08/02/18 [Rx] Clindamycin HCl 300 mg PO TID #21 capsule 08/02/18 [Rx] buPROPion HCl [Wellbutrin SR] 150 mg PO DAILY 08/02/18 [History] busPIRone [Buspar] 08/02/18 [History] Past Medical History - Past Health History Medical/Surgical History: Denies Medical/Surgical History HEENT History: Reports: None, Impaired Vision Cardiovascular History: Reports: None Respiratory History: Reports: Bronchitis, Recurrent Gastrointestinal History: Reports: Cholelithiasis, GERD Genitourinary History: Reports: Renal Calculus 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 Was treated for this and has had 2 negative swabs with most recent being 2017. Is on contact precautions however due to it not being 1 year since treatment and first neg screening. - Past Surgical History Head Surgeries/Procedures: Reports: None HEENT Surgical History: Reports: None, Oral Surgery Cardiovascular Surgical History: Reports: None Respiratory Surgical History: Reports: None GI Surgical History: Reports: Cholecystectomy Female Surgical History: Reports: Other (See Below) Other Female Surgeries/Procedures: control implant Endocrine Surgical History: Reports: None Oncologic Surgical History: Reports: None Dermatological Surgical History: Reports: None Social & Family History - Family History Family Medical History: Noncontributory Cardiac: Reports: CAD, Hypertension, Stent Endocrine/Metabolic: Reports: Diabetes, Gestational - Tobacco Use Smoking Status *Q: Never Smoker - Caffeine Use Caffeine Use: Reports: Coffee, Energy Drinks, Soda - Recreational Drug Use Recreational Drug Use: No ED ROS ENT - Review of Systems Review Of Systems: See Below Constitutional: Denies: Fever, Chills HEENT: Reports: Dental Pain Respiratory: Reports: No Symptoms Cardiovascular: Reports: No Symptoms Endocrine: Reports: No Symptoms GI/Abdominal: Reports: No Symptoms : Reports: No Symptoms Musculoskeletal: Reports: No Symptoms Skin: Reports: No Symptoms Neurological: Reports: No Symptoms Psychiatric: Reports: No Symptoms Hematologic/Lymphatic: Reports: No Symptoms Immunologic: Reports: No Symptoms ED EXAM, ENT - Physical Exam Exam: See Below Exam Limited By: No Limitations General Appearance: Alert, WD/WN, No Apparent Distress Eye Exam: Bilateral Eye: Normal Inspection Mouth/Throat: Normal Inspection, Normal Gums, Normal Lips, Normal Oropharynx, Dental Pain (R lower posterior jaw, dry socket appreciated and the jaw bone is exposed) Head: Atraumatic, Normocephalic Neck: Normal Inspection Respiratory/Chest: No Respiratory Distress, Lungs Clear, Normal Breath Sounds, No Accessory Muscle Use, Chest Non-Tender Cardiovascular: Normal Peripheral Pulses, Regular Rate, Rhythm, No Murmur Neurological: Alert, Oriented, Normal Cognition, No Motor/Sensory Deficits Psychiatric: Normal Affect, Normal Mood Skin: Warm, Dry, Intact, Normal Color, No Rash Course - Vital Signs Last Recorded V/S: Last Vital Signs Temp 97.5 F 08/02/18 21:15 Pulse 99 08/02/18 21:15 Resp 16 08/02/18 21:15 BP 149/91 H 08/02/18 21:15 Pulse Ox 100 08/02/18 21:15 - Orders/Labs/Meds Meds: Medications Discontinued Medications Generic Name Dose Route Start Last Admin Trade Name Freq PRN Reason Stop Dose Admin Clindamycin Phosphate 600 mg 08/02/18 21:47 Cleocin IM 08/02/18 21:48 ONETIME ONE Ketorolac Tromethamine 30 mg 08/02/18 21:47 Toradol IM 08/02/18 21:48 ONETIME ONE - Re-Assessments/Exams Free Text/Narrative Re-Assessment/Exam: 08/02/18 21:56 Patient presents to the ED for the evaluation of a possible dry socket. I do believe that the patient is suffering from dry socket. I have ordered clindamycin and Toradol in the ED today, and will provide the patient with a week's worth of clindamycin, and hydrocodone 5/325 for the weekend, until she can be evaluated by her dentist. Departure - Departure Time of Disposition: 21:57 Disposition: Home, Self-Care 01 Condition: Fair Clinical Impression: Dry tooth socket - Discharge Information *PRESCRIPTION DRUG MONITORING PROGRAM REVIEWED*: No *COPY OF PRESCRIPTION DRUG MONITORING REPORT IN PATIENT LUIS: No Prescriptions: Acetaminophen/HYDROcodone [Ashley 325-5 MG] 1 tab PO Q6H PRN #12 tablet PRN Reason: Pain Clindamycin HCl 300 mg PO TID #21 capsule Instructions: Dental Dry Socket, [id number] Referrals: Tabitha Joy PA-C [Primary Care Provider] - Forms: ED Department Discharge Additional Instructions: You have been evaluated in the ED for your dental pain. You have been provided with a script for Clindamycin. This was electronically sent to the Clinic pharmacy located in the [facility]. Please take this medication as directed. (1 tab 3 times daily for 7 days or until gone). Aleve provides good pain relief for dental pain. Please take 1-2 tabs twice daily as needed for pain. You may take 600 mg ibuprofen every 6 hours as needed for pain relief. You have been provided with a few tablets of hydrocodone 5/325, please use every 6 hours as needed for pain relief not relieved by Aleve or ibuprofen alone. You may use hot pack/ ice packs to the affected area as tolerated in 15-20 minute intervals. Please rinse your mouth with saline rinses after eating, and make sure that there is no debris left in the socket to try to prevent further infection. You will need to follow up with your dentist on Monday for further management. Please return to the ED if your symptoms change or worsen.
[2018-08-02] MEDS ORDERED: Ketorolac 30 MG/ML SDV IM ONE (21:47)
[2018-08-02] MEDS ORDERED: Clindamycin Phosphate 300 MG/2 ML SDV IM ONE (21:47)
== END 2018-08-02 22:15 | disposition home or self-care (01) ==
LOC: JD.ED 21:10
DX: K08.89 Other specified disorders of teeth and supporting structures (principal); F41.9 Anxiety disorder, unspecified; F32.9 Major depressive disorder, single episode, unspecified; Z79.899 Other long term (current) drug therapy
CPT/HCPCS: 96372; 99283; J1885; J3490

== ENCOUNTER 2018-10-22 22:08 | Emergency (ER) | payer MEDICARE, MEDICAID ==
[2018-10-22] MEDS ORDERED: HYDROmorphone 1 MG/ML Syringe IM ONE (22:34)
[2018-10-22] MEDS ORDERED: cefTRIAXone 1 GM, Lidocaine 1% 2.1 ML IM ONE ×2 (22:35)
--- NOTE | 2018-10-22 22:40 | EDM.PDOC ---
ED HPI GENERAL MEDICAL PROBLEM - General Chief Complaint: ENT Problem Stated Complaint: TEMP AND PAIN POST ORAL SURGERY Time Seen by Provider: 10/22/18 22:19 Source of Information: Reports: Patient History Limitations: Reports: No Limitations - History of Present Illness INITIAL COMMENTS - FREE TEXT/NARRATIVE: The patient presents with left upper jaw pain. This started a few days ago. She had 4 teeth extracted on 10/11 and then some fillings done a week after. A few days ago she started having pain and fever. She has some mild swelling to the left side of the face. Onset: Gradual Duration: Day(s): Location: Reports: Face Quality: Reports: Sharp Severity: Severe Improves with: Reports: None Worsens with: Reports: None Associated Symptoms: Reports: Fever/Chills. Denies: Chest Pain, Cough, Headaches, Nausea/Vomiting, Shortness of Breath Left Face/Facial Pain Score (Numeric/FACES): 10 - Related Data Allergies Allergy/AdvReac Type Severity Reaction Status Date / Time hydrocodone Allergy Rash Verified 10/22/18 22:20 Home Meds: Home Meds busPIRone [Buspar] 15 mg PO BID 08/02/18 [History] ALPRAZolam [Xanax] 5 mg PO TID PRN 10/22/18 [History] lamoTRIgine [Lamictal] 25 mg PO DAILY 10/22/18 [History] oxyCODONE HCl [Roxicodone] 5 mg PO Q4H PRN 10/22/18 [History] Past Medical History - Past Health History Medical/Surgical History: Denies Medical/Surgical History HEENT History: Reports: None, Impaired Vision Cardiovascular History: Reports: None Respiratory History: Reports: Bronchitis, Recurrent Gastrointestinal History: Reports: Cholelithiasis, GERD Genitourinary History: Reports: Renal Calculus 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 Was treated for this and has had 2 negative swabs with most recent being 2017. Is on contact precautions however due to it not being 1 year since treatment and first neg screening. - Past Surgical History Head Surgeries/Procedures: Reports: None HEENT Surgical History: Reports: None, Oral Surgery Cardiovascular Surgical History: Reports: None Respiratory Surgical History: Reports: None GI Surgical History: Reports: Cholecystectomy Female Surgical History: Reports: Other (See Below) Other Female Surgeries/Procedures: control implant Endocrine Surgical History: Reports: None Oncologic Surgical History: Reports: None Dermatological Surgical History: Reports: None Social & Family History - Family History Family Medical History: Noncontributory Cardiac: Reports: CAD, Hypertension, Stent Endocrine/Metabolic: Reports: Diabetes, Gestational - Caffeine Use Caffeine Use: Reports: Coffee, Energy Drinks, Soda ED ROS ENT - Review of Systems Review Of Systems: See Below Constitutional: Reports: Fever HEENT: Reports: Dental Pain Respiratory: Reports: No Symptoms Cardiovascular: Reports: No Symptoms Endocrine: Reports: No Symptoms GI/Abdominal: Reports: No Symptoms : Reports: No Symptoms ED EXAM, ENT - Physical Exam Exam: See Below Exam Limited By: No Limitations General Appearance: Alert, No Apparent Distress Ears: Normal External Exam Nose: Normal Inspection Mouth/Throat: Other (No erythema but she has mild edema to the left upper jaw and pain upon palpation.) Head: Other (Mild edema to the left upper jaw) Neck: Normal Inspection Respiratory/Chest: No Respiratory Distress Course - Vital Signs Last Recorded V/S: Last Vital Signs Temp 98.0 F 10/22/18 22:17 Pulse 97 10/22/18 22:17 Resp 16 10/22/18 22:17 BP 156/110 H 10/22/18 22:17 Pulse Ox 99 10/22/18 22:17 - Orders/Labs/Meds Orders: Active Orders 24 hr Category Date Time Status HYDROmorphone [Dilaudid] Med 10/22/18 22:34 Once 1 mg IM ONETIME ONE cefTRIAXone [Rocephin] 1 gm Med 10/22/18 22:35 Ordered Lidocaine 1% [Xylocaine 1%] 2.1 ml IM ONETIME - Re-Assessments/Exams Free Text/Narrative Re-Assessment/Exam: 10/22/18 22:38 I am concerned about an apical dental abscess. I ordered a shot of rocephin and dilaudid. I will discharge her home with pen VK and percocet for pain. Departure - Departure Time of Disposition: 22:40 Disposition: Home, Self-Care 01 Condition: Good Clinical Impression: Dental abscess - Discharge Information *PRESCRIPTION DRUG MONITORING PROGRAM REVIEWED*: No *COPY OF PRESCRIPTION DRUG MONITORING REPORT IN PATIENT LUIS: No Referrals: Tabitha Joy PA-C [Primary Care Provider] - Additional Instructions: Call your dentis tomorrow. Take the pen VK 4 times per day and the percocet for pain. Put warm compresses on your face a couple times per day for a few days. Please return if you are worse. - My Orders Last 24 Hours: My Active Orders 10/22/18 22:34 HYDROmorphone [Dilaudid] 1 mg IM ONETIME ONE 10/22/18 22:35 cefTRIAXone [Rocephin] 1 gm Lidocaine 1% [Xylocaine 1%] 2.1 ml IM ONETIME - Assessment/Plan Last 24 Hours: My Active Orders 10/22/18 22:34 HYDROmorphone [Dilaudid] 1 mg IM ONETIME ONE 10/22/18 22:35 cefTRIAXone [Rocephin] 1 gm Lidocaine 1% [Xylocaine 1%] 2.1 ml IM ONETIME
== END 2018-10-22 23:02 | disposition home or self-care (01) ==
LOC: JD.ED 22:08
DX: K04.7 Periapical abscess without sinus (principal); F41.9 Anxiety disorder, unspecified; F32.9 Major depressive disorder, single episode, unspecified; Z79.899 Other long term (current) drug therapy; Z88.5 Allergy status to narcotic agent
CPT/HCPCS: 96372; 99282; J0696; J1170; J2001

== ENCOUNTER 2021-02-06 10:23 | Inpatient (IN) | payer MEDICARE, MEDICAID ==
[~2021-02-06 10:23] MED LIST: Lidocaine 1.5% with EPINEPHrine 1:200,000 5 ML Amp ONE
[2021-02-06] MEDS ORDERED: Sodium Chloride 0.9% 10 ML Syringe FLUSH PRN (11:20)
[2021-02-06] MEDS ORDERED: Oxytocin/Lactated Ringers 10 UNIT/1,000 ML BAG IV SCH (11:30)
[2021-02-06] MEDS ORDERED: fentaNYL 100 MCG/2 ML SDV EPIDUR PRN (11:49)
[2021-02-06] MEDS ORDERED: diphenhydrAMINE 50 MG/ML SDV IVPUSH PRN (11:49)
[2021-02-06] MEDS ORDERED: ePHEDrine 50 MG/ML SDV IVPUSH PRN (11:49)
[2021-02-06] MEDS ORDERED: Bupivacaine/fentaNYL/NS 100 ML Bag EPIDUR PRN (11:49)
[2021-02-06] MEDS: Lactated Ringers 1,000 ML IV SCH ×2 (12:19→12:20)
--- NOTE | 2021-02-06 12:36 | PCM.LDHP ---
L&D History of Present Illness - General Date of Service: 02/06/21 Admit Problem/Dx: Patient Status Order with Admit Dx/Problem 02/06/21 11:20 Patient Status [ADT] Routine Admission Diagnosis/Problem Admission Diagnosis/Problem 02/06/21 12:26 Nancy is a 30-year-old 4 para 3-0-0-3 female admitted in active labor with advanced cervical dilation of 6 cm at 39-5/7 weeks gestational age with an JUAN of 02/08/2021. Source of Information: Patient History Limitations: Reports: No Limitations - History of Present Illness Introduction:: Nancy is a 30-year-old 4 para 3-0-0-3 female admitted in active labor with advanced cervical dilation of 6 cm at 39-5/7 weeks gestational age with an JUAN of 02/08/2021. Apparently slept well last night but awakened this morning at approximately 0800 hrs. with contractions. They have progressed to every 3 minutes at this time. She has not had any leakage, bloody show. Baby has been active. heart tones on monitor upon admission are reassuring. 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 Her JUAN of 02/08/2021 is based upon a certain last menstrual period started 06/18/2020. This is supported by at least 2 ultrasounds during the course of the . Her obstetric history includes the followin. Female infant born 07/18/2009 at 40-3/7 weeks gestational age at 8 pound 15 ounces. Spontaneous vaginal delivery-epidural used for labor analgesia. 2. Male infant born 08/22/2013 at 39-6/7 weeks gestational age at a weight of 8 pounds 0 ounces. Spontaneous vaginal deliveryepidural used for labor analgesia. 3. Female infant born 11/18[birth year]2017 at 40-1/7 weeks gestational age at 7 pounds 4 ounces. Spontaneous vaginal laborepidural used for labor analgesia. course: Patient was seen early in at 5-3/7 weeks gestational age. She is seen on a very regular basis. Weight increased approximately 5 pounds during the course of per patient report. Fundal height growth was appropriate. Vital signs remained stable throughout the course. On last evaluation clinic on 02/02/2021 cervix was 2.5 cm dilated, 50% effaced, - 3 station. Laboratory testing in : Blood is O- with a negative antibody screen. Patient did receive RhoGam during the course of her . Initial hemog lobin at first visit was 14.0 g/dL. Platelets are 172,000. She is rubella immune. RPR was nonreactive. Hepatitis B surface antigen was nonreactive as well as hepatitis C assay. Chlamydia was negative. Gonorrhea was negative. Urine culture was performed. 1 hour GTT was normal at 111 mg/dL. Second trimester hemoglobin was 12.1 and platelets were 143,000. Group B strep was negative. Allergies: Codeine Medications: 1. vitamins daily 2. Tell #3 1-2 tabs every 4-6 hours as needed for headaches. 3. Flexeril 1-2 tabs by mouth 3 times a day for muscle spasms Past medical history: 1. x3 2. Depression/anxiety on Effexor 3. Pyelonephritis 4. Renal lithiasis 5. MRSA infection 06/11/2017 Past surgical history: 1. Laparoscopic cholecystectomy with ERCP 2. [place] tooth extraction Family history: Mother is alive in generally good health. Father has had some heart disease. He is age 73, has had multiple heart stents placed. 2 sisters with type 2 diabetes. 2 brothers generally healthy 1 had some congenital heart blood vessel abnormalities requiring surgery as a child. All grandparents are . Most from old age. No anesthesia, bleeding, blood clotting problems noted in the family. Social history: Patient is . She and her and family live in [place], [place]. She desires any significance alcohol, drugs or tobacco. is Jimbo. He works in the [employer]. Patient is a [id number] mom. Review of systems: Review of systems: In general patient has no complaints other than contractions which are progressive in nature and are fairly significant at this time. She denies any loss of fluid, vaginal bleeding. Does report good activity.. Skin: Negative Lungs: No infectious symptoms or shortness of breath Cardiovascular: No chest pain or exercise intolerance Breasts: No lumps, changes in size, pain, dimpling, discharge or axillary or supraclavicular concerns. GI: Negative : Per HPI. Musculoskeletal: Negative Neurological: Negative Physical exam: In general the patient is well-developed, well-nourished, pleasant female of stated age in mild distress secondary to labor.. Skin is warm dry without lesions. HEENT, neck and back within normal limits. Lungs are clear with good breath sounds in all lung soto. Cardiovascular exam shows regular and rhythm without murmurs. Abdomen is gravid with last fundal height in clinic at 39 cm. Baby in vertex presentation at that time and reported to be cephalic at this time by nursing staff. Genital per nurse evaluation: 6 cm, -2 station, bulging bag [place]. Cephalic presentation, anterior, very soft. Extremities and neurological exam are grossly within normal limits. Pain Score: 10 - Related Data Allergies/Adverse Reactions: Allergies Allergy/AdvReac Type Severity Reaction Status Date / Time hydrocodone Allergy Rash Verified 01/17/21 16:34 Home Medications: Home Meds Pnv No.95/Ferrous Fum/Folic AC [ Tablet] 1 each PO DAILY 01/17/21 [History] Past Medical History - Past Health History Medical/Surgical History: Denies Medical/Surgical History HEENT History: Reports: None, Impaired Vision Cardiovascular History: Reports: None Respiratory History: Reports: Bronchitis, Recurrent Gastrointestinal History: Reports: Cholelithiasis, GERD Genitourinary History: Reports: Renal Calculus [employer] 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 Was treated for this and has had 2 negative swabs with most recent being 05/2017. Is on contact precautions however due to it not being 1 year since treatment and first neg screening. - Past Surgical History Head Surgeries/Procedures: Reports: None HEENT Surgical History: Reports: None, Oral Surgery Cardiovascular Surgical History: Reports: None Respiratory Surgical History: Reports: None GI Surgical History: Reports: Cholecystectomy Female Surgical History: Reports: Other (See Below) Other Female Surgeries/Procedures: control implant Endocrine Surgical History: Reports: None Oncologic Surgical History: Reports: None Dermatological Surgical History: Reports: None Social & Family History - Family History Family Medical History: No Pertinent Family History Cardiac: Reports: CAD, Hypertension, Stent Endocrine/Metabolic: Reports: Diabetes, Gestational - Caffeine Use Caffeine Use: Reports: Coffee, Energy Drinks, Soda H&P Review of Systems - Review of Systems: Review Of Systems: See Below L&D Exam - Exam Exam: See Below - Vital Signs Weight: 100.244 kg - Patient Data Lab Results Last 24 hrs: Laboratory Results - last 24 hr 02/06/21 02/06/21 Range/Units 11:10 11:42 WBC 10.10 H (3.98-10.04) K/mm3 RBC 4.31 (3.98-5.22) M/mm3 Hgb 13.4 (11.2-15.7) gm/dl Hct 39.8 (34.1-44.9) % MCV 92.3 (79.4-94.8) fl MCH 31.1 (25.6-32.2) pg MCHC 33.7 (32.2-35.5) g/dl RDW Std Deviation 54.6 H (36.4-46.3) fL Plt Count 153 L (182-369) K/mm3 MPV 10.1 (9.4-12.3) fl Neut % (Auto) 77.0 H (34.0-71.1) % Lymph % (Auto) 15.0 L (19.3-51.7) % [place] % (Auto) 6.5 (4.7-12.5) % Eos % (Auto) 0.6 L (0.7-5.8) Baso % (Auto) 0.2 (0.1-1.2) % Neut # (Auto) 7.78 H (1.56-6.13) K/mm3 Lymph # (Auto) 1.51 (1.18-3.74) K/mm3 [place] # (Auto) 0.66 H (0.24-0.36) K/mm3 Eos # (Auto) 0.06 (0.04-0.36) K/mm3 Baso # (Auto) 0.02 (0.01-0.08) K/mm3 SARS-CoV-2 RNA (TOÑA) Negative (NEGATIVE) Result Diagrams: 02/06/21 11:42 - Problem List (1) 39 weeks gestation of SNOMED Code(s): 23034247 ICD Code: Z3A.39 - 39 WEEKS GESTATION OF Status: Acute Current Visit: Yes (2) Active labor at term SNOMED Code(s): 33914938 ICD Code: [id number] - Status: Acute Current Visit: Yes Problem List Initiated/Reviewed/Updated: Yes Orders Last 24hrs: Active Orders 24 hr Category Date Time Status Patient Status [ADT] Routine ADT 02/06/21 11:20 Active Activity as Tolerated [RC] PFP Care 02/06/21 11:20 Active Communication Order [RC] ASDIRECTED Care 02/06/21 11:20 Active Heart Tones [RC] ASDIRECTED Care 02/06/21 11:21 Active Non Stress Test [RC] PER UNIT ROUTINE Care 02/06/21 10:46 Active Notify Provider [RC] ASDIRECTED Care 02/06/21 11:49 Active Notify Provider [RC] PFP Care 02/06/21 11:20 Active Notify Provider [RC] PRN Care 02/06/21 11:20 Active Peripheral IV Care [RC] . DIRECTED Care 02/06/21 11:21 Active Vital Signs [RC] PER UNIT ROUTINE Care 02/06/21 10:46 Active Regular Diet [DIET] Diet 02/06/21 Lunch Active RAPID PLASMA REAGIN,RPR [CHEM] Routine Lab 02/06/21 11:42 Received Bupivacaine/fentaNYL/NS [fentaNYL/Bupivacaine/NS 2 MCG- Med 02/06/21 11:49 Active 0.125% 100 ML] 100 ml EPIDUR ASDIRECTED PRN Lactated Ringers [Ringers, Lactated] 1,000 ml Med 02/06/21 11:30 Active IV ASDIRECTED Oxytocin/Lactated Ringers [Pitocin in LR 10 Units/1,000 Med 02/06/21 11:30 Active ML] 10 unit in 1,000 ml IV .CONTINUOUS Sodium Chloride 0.9% [Saline Flush] Med 02/06/21 11:20 Active 10 ml FLUSH ASDIRECTED PRN diphenhydrAMINE [Benadryl] Med 02/06/21 11:49 Active 25 mg IVPUSH Q6H PRN ePHEDrine [ePHEDrine sulfate] Med 02/06/21 11:49 Active 5 mg IVPUSH ASDIRECTED PRN fentaNYL [Sublimaze] Med 02/06/21 11:49 Active 100 mcg EPIDUR Q3H PRN Electronic Heart Tones Ext w TOCO [WOMSER] Oth 02/06/21 11:20 Ordered Routine Electronic Heart Tones Internal [WOMSER] Per Unit Oth 02/06/21 11:20 Ordered Routine Peripheral IV Insertion Adult [OM.PC] Routine Oth 02/06/21 11:20 Ordered Resuscitation Status Routine Resus Stat 02/06/21 10:46 Ordered Medication Orders Diphenhydramine HCl (Diphenhydramine 50 Mg/Ml Sdv) 25 mg IVPUSH Q6H PRN PRN Reason: pruritis Ephedrine Sulfate (Ephedrine 50 Mg/Ml Sdv) 5 mg IVPUSH ASDIRECTED PRN PRN Reason: Hypotension Fentanyl (Fentanyl 100 Mcg/2 Ml Sdv) 100 mcg EPIDUR Q3H PRN PRN Reason: Pain Last Admin: 02/06/21 12:21 Dose: 100 mcg Documented by: JULISSA Fentanyl/Bupivacaine HCl (Bupivacaine/Fentanyl/Ns 100 Ml Bag) 100 ml EPIDUR ASDIRECTED PRN PRN Reason: Pain Last Admin: 02/06/21 12:21 Dose: 100 ml Documented by: JULISSA Lactated Ringer's (Ringers, Lactated) 1,000 mls @ 100 mls/hr IV ASDIRECTED RADHA Last Admin: 02/06/21 12:20 Dose: 100 mls/hr Documented by: Infusion: 02/06/21 12:20 Dose: 100 mls/hr Documented by: Admin: 02/06/21 12:19 Dose: 100 mls/hr Documented by: JULISSA Oxytocin/Lactated Ringer's (Pitocin In Lr 10 Units/1,000 Ml) 10 unit in 1,000 mls @ 500 mls/hr IV .CONTINUOUS RADHA Sodium Chloride (Sodium Chloride 0.9% 10 Ml Syringe) 10 ml FLUSH ASDIRECTED PRN PRN Reason: Keep Vein Open Assessment/Plan Comment:: 1Victor Manuel is a 30-year-old 4 para 3-0-0-3 female admitted in active labor with advanced cervical dilation of 6 cm at 39-5/7 weeks gestational age with an JUAN of 02/08/2021. 2. Group B strep negative. 3. Patient desiring epidural. 4. Patient plans to breast-feed. 5. plan is read and I am in agreement with all factors and desires. Patient does want to have her assisted delivery which will be done if situation progresses normally. 6. Risk factors for the include: Rh- status Plan: 1. Anticipate . 2. We will allow her to participate in delivery if so the situation progresses normally 3. Support breast-feeding decision 4. Epidural for labor analgesia 5. Rh immunoglobulin as indicated by baby blood Rh
--- NOTE | 2021-02-06 13:00 | PCM.PREANE ---
Preanesthetic Assessment - Procedure Proposed Procedure: Continuous labor epidural - Anesthesia/Transfusion/Family Hx Anesthesia History: Prior Anesthesia Without Reaction Transfusion History: No Prior Transfusion(s) - Review of Systems General: No Symptoms Pulmonary: No Symptoms Cardiovascular: No Symptoms Gastrointestinal: No Symptoms Neurological: No Symptoms Other: Reports: None - Physical Assessment Height: 1.63 m Weight: 100.244 kg ASA Class: 2 Mental Status: Alert & Oriented x3 Airway Class: Mallampati = 2 Dentition: Reports: Normal Dentition Thyro-Mental Finger Breadths: 3 Mouth Opening Finger Breadths: 3 ROM/Head Extension: Full Lungs: Clear to Auscultation, Normal Respiratory Effort Cardiovascular: Regular Rate, Regular Rhythm - Lab Values: Laboratory Last Values WBC 10.10 K/mm3 (3.98-10.04) H 02/06/21 11:42 RBC 4.31 M/mm3 (3.98-5.22) 02/06/21 11:42 Hgb 13.4 gm/dl (11.2-15.7) 02/06/21 11:42 Hct 39.8 % (34.1-44.9) 02/06/21 11:42 MCV 92.3 fl (79.4-94.8) 02/06/21 11:42 MCH 31.1 pg (25.6-32.2) 02/06/21 11:42 MCHC 33.7 g/dl (32.2-35.5) 02/06/21 11:42 RDW Std Deviation 54.6 fL (36.4-46.3) H 02/06/21 11:42 Plt Count 153 K/mm3 (182-369) L 02/06/21 11:42 MPV 10.1 fl (9.4-12.3) 02/06/21 11:42 Neut % (Auto) 77.0 % (34.0-71.1) H 02/06/21 11:42 Lymph % (Auto) 15.0 % (19.3-51.7) L 02/06/21 11:42 [place] % (Auto) 6.5 % (4.7-12.5) 02/06/21 11:42 Eos % (Auto) 0.6 (0.7-5.8) L 02/06/21 11:42 Baso % (Auto) 0.2 % (0.1-1.2) 02/06/21 11:42 Neut # (Auto) 7.78 K/mm3 (1.56-6.13) H 02/06/21 11:42 Lymph # (Auto) 1.51 K/mm3 (1.18-3.74) 02/06/21 11:42 [place] # (Auto) 0.66 K/mm3 (0.24-0.36) H 02/06/21 11:42 Eos # (Auto) 0.06 K/mm3 (0.04-0.36) 02/06/21 11:42 Baso # (Auto) 0.02 K/mm3 (0.01-0.08) 02/06/21 11:42 SARS-CoV-2 RNA (TOÑA) Negative (NEGATIVE) 02/06/21 11:10 - Allergies Allergies/Adverse Reactions: Allergies Allergy/AdvReac Type Severity Reaction Status Date / Time hydrocodone Allergy Rash Verified 01/17/21 16:34 - Acknowledgements Anesthesia Type Planned: Epidural Pt an Appropriate Candidate for the Planned Anesthesia: Yes Alternatives and Risks of Anesthesia Discussed w Pt/Guardian: Yes Pt/Guardian Understands and Agrees with Anesthesia Plan: Yes PreAnesthesia Questionnaire - Past Health History Medical/Surgical History: Denies Medical/Surgical History HEENT History: Reports: None, Impaired Vision Cardiovascular History: Reports: None Respiratory History: Reports: Bronchitis, Recurrent Gastrointestinal History: Reports: Cholelithiasis, GERD Genitourinary History: Reports: Renal Calculus [employer] HISTORIAN History: Reports: Other OB/BYN History: Musculoskeletal History: Reports: Back Pain, Chronic Neurological History: Reports: Headaches, Chronic Psychiatric History: Reports: Anxiety, Depression, Other (See Below) Other Psychiatric History: 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 Was treated for this and has had 2 negative swabs with most recent being 05/2017. Is on contact precautions however due to it not being 1 year since treatment and first neg screening. - Past Surgical History Head Surgeries/Procedures: Reports: None HEENT Surgical History: Reports: None, Oral Surgery Cardiovascular Surgical History: Reports: None Respiratory Surgical History: Reports: None GI Surgical History: Reports: Cholecystectomy Female Surgical History: Reports: Other (See Below) Other Female Surgeries/Procedures: control implant Endocrine Surgical History: Reports: None Oncologic Surgical History: Reports: None Dermatological Surgical History: Reports: None - HOME MEDS Home Medications: Home Meds Pnv No.95/Ferrous Fum/Folic AC [ Tablet] 1 each PO DAILY 01/17/21 [History] - CURRENT (IN HOUSE) MEDS Current Meds: Current Medications Diphenhydramine HCl (Diphenhydramine 50 Mg/Ml Sdv) 25 mg IVPUSH Q6H PRN PRN Reason: pruritis Ephedrine Sulfate (Ephedrine 50 Mg/Ml Sdv) 5 mg IVPUSH ASDIRECTED PRN PRN Reason: Hypotension Fentanyl (Fentanyl 100 Mcg/2 Ml Sdv) 100 mcg EPIDUR Q3H PRN PRN Reason: Pain Last Admin: 02/06/21 12:21 Dose: 100 mcg Documented by: Fentanyl/Bupivacaine HCl (Bupivacaine/Fentanyl/Ns 100 Ml Bag) 100 ml EPIDUR ASDIRECTED PRN PRN Reason: Pain Last Admin: 02/06/21 12:21 Dose: 100 ml Documented by: Lactated Ringer's (Ringers, Lactated) 1,000 mls @ 100 mls/hr IV ASDIRECTED RADHA Last Admin: 02/06/21 12:20 Dose: 100 mls/hr Documented by: Oxytocin/Lactated Ringer's (Pitocin In Lr 10 Units/1,000 Ml) 10 unit in 1,000 mls @ 500 mls/hr IV .CONTINUOUS RADHA Sodium Chloride (Sodium Chloride 0.9% 10 Ml Syringe) 10 ml FLUSH ASDIRECTED PRN PRN Reason: Keep Vein Open
--- NOTE | 2021-02-06 14:41 | PCM.SN.2 ---
- Free Text/Narrative Note: Delivery note: Stage I: Nancy is a 30-year-old 4 now para 4-0-0-4 female admitted in active labor with advanced cervical dilation of 6 cm at 39-5/7 weeks gestational age with an JUAN of 02/08/2021. Patient underwent progression of labor and at approximately 7 cm dilation was uncomfortable enough to ask for an epidural. Epidural was placed in routine fashion. She had good results with this. Artificial rupture membranes was then undertaken with resultant very mild meconium-stained amniotic fluid. heart tones were generally reassuring throughout the labor course. Patient progressed rapidly to complete cervical dilation by approximately 1345 hrs. Stage II: Nancy delivered a viable, miramontes, female infant named Verna Dunlap at 1403 hrs. on 02/06/2021. Baby delivered in a direct occiput anterior position with external restitution to the right. Umbilical cord was found around the neck once and eventually around the shoulder x1 both were loose. Using gentle downward then upward traction the anterior shoulder and posterior shoulders were then delivered without problems. The patient's Jimbo assisted in delivery per his request. The baby was placed on mom's abdomen. The umbilical cord was allowed to pulsate for approximately 2 minutes then was c lamped x2 and cut by the baby's father. Cord blood was obtained. The vocal cord had 3 vessels. Pitocin was increased to 500 cc an hour in order to facilitate uterine contraction and decrease likelihood of bleeding. No lacerations were encountered and no suturing was required. Stage III: The placenta delivered in a Chaudhary presentation at 1407 hrs. It appeared intact and complete and was discarded per patient desire. Estimated blood loss was 200 cc. Condition: Good. Patient plans to breast-feed.
[2021-02-06] MEDS ORDERED: Acetaminophen 325 MG Tab PO PRN (15:25)
[2021-02-06] MEDS ORDERED: Docusate Sodium 100 MG Cap PO PRN (15:25)
[2021-02-06] MEDS ORDERED: Benzocaine/Menthol 20%-0.5% Spray 78 GM Cannister TOP PRN (15:25)
[2021-02-06] MEDS ORDERED: Witch Hazel Medicated Pads 40/Jar TOP PRN (15:25)
[2021-02-06] MEDS: Ibuprofen 600 MG Tab PO PRN ×2 (16:14→21:51)
[2021-02-06] MEDS ORDERED: Calcium Carbonate 500 MG Tab.Chew PO PRN (22:17)
[2021-02-07] MEDS: Ibuprofen 600 MG Tab PO PRN ×2 (04:29→08:37)
--- NOTE | 2021-02-07 04:38 | PCM.DCSUM1 ---
Discharge Summary - Hospital Course Free Text/Narrative:: Stage I: Nancy is a 30-year-old 4 now para 4-0-0-4 female admitted in active labor with advanced cervical dilation of 6 cm at 39-5/7 weeks gestational age with an JUAN of 02/08/2021. Patient underwent progression of labor and at approximately 7 cm dilation was uncomfortable enough to ask for an epidural. Epidural was placed in routine fashion. She had good results with this. Artificial rupture membranes was then undertaken with resultant very mild meconium-stained amniotic fluid. heart tones were generally reassuring throughout the labor course. Patient progressed rapidly to complete cervical dilation by approximately 1345 hrs. Stage II: Nancy delivered a viable, miramontes, female named Verna Dunlap at 1403 hrs. on 02/06/2021. Baby delivered in a direct occiput anterior position with external restitution to the right. Umbilical cord was found around the neck once and eventually around the shoulder x1 both were loose. Using gentle downward then upward traction the anterior shoulder and posterior shoulders were then delivered without problems. The patient's Jimbo assisted in delivery per his request. The baby was placed on mom's abdomen. The umbilical cord was allowed to pulsate for approximately 2 minutes then was clamped x2 and cut by the baby's father. Cord blood was obtained. The vocal cord had 3 vessels. Pitocin was increased to 500 cc an hour in order to facili mcknight uterine contraction and decrease likelihood of bleeding. No lacerations were encountered and no suturing was required. Stage III: The placenta delivered in a Chaudhary presentation at 1407 hrs. It appeared intact and complete and was discarded per patient desire. Estimated blood loss was 200 cc. Patient plans to breast-feed. patient has done very well. She is ambulating well, has voided without problems. She is nursing without concerns and has minimal lochia. Vital signs are stable and she has been afebrile since the time of delivery. Patient is interested in going home today. Condition: Good. - Discharge Data Discharge Date: 02/07/21 Discharge Disposition: Home, Self-Care 01 Condition: Good - Referral to Home Health Primary Care Physician: Cary Greenfield MD - Discharge Diagnosis/Problem(s) (1) 39 weeks gestation of SNOMED Code(s): 44772960 ICD Code: Z3A.39 - 39 WEEKS GESTATION OF Status: Acute Current Visit: Yes (2) Active labor at term SNOMED Code(s): 53875048 ICD Code: [id number] - Status: Acute Current Visit: Yes - Patient Instructions Diet: Regular Diet as Tolerated (Nursing diet with increased calories and calcium is recommended) Activity: As Tolerated (No intercourse or tampons until bleeding resolves) Driving: May Drive Today Showering/Bathing: May Shower (May take a bath) Notify Provider of: Fever, Increased Pain, Swelling and Redness, Nausea and/or Vomiting - Discharge Plan Home Medications: Home Meds Pnv No.95/Ferrous Fum/Folic AC [ Tablet] 1 each PO DAILY 01/17/21 [History] Acetaminophen [Tylenol] 650 mg PO Q4H PRN tablet 02/07/21 [Rx] Ibuprofen [Motrin] 600 mg PO Q4H PRN tablet 02/07/21 [Rx] Referrals: Cary Greenfield MD [Primary Care Provider] - (Return to clinicDr. Greenfieldpatient is to please call for an appointment.) - Discharge Summary/Plan Comment DC Time >30 min.: No Total # of Minutes for Discharge Time: 10 Discharge Summary/Plan Comment: Discharge instructions: 1. Discharge home 2. Diet, activity and follow-up discussed with patient. Recommend nursing diet with increased calories and calcium. 3. Precautions given concern increased pain, bleeding, temperature, signs/symptoms of DVT/PE. 4. Medications per home medication was printed, discussed with and given to the patient. 5. [facility] Diagnosis: Term -delivered Condition: Good - Patient Data Vitals - Most Recent: Last Vital Signs Temp 36.3 C 02/06/21 11:25 Pulse 102 H 02/06/21 11:25 Resp 14 02/06/21 11:25 BP 136/73 02/06/21 11:25 Pulse Ox 99 02/06/21 11:25 Weight - Most Recent: 100.244 kg I&O - Last 24 hours: Intake & Output 02/06/21 02/06/21 02/07/21 14:59 22:59 06:59 Intake Total 3000 Balance 3000 Lab Results - Last 24 hrs: Laboratory Results - last 24 hr 02/06/21 02/06/21 02/06/21 Range/Units 11:10 11:42 11:42 WBC 10.10 H (3.98-10.04) K/mm3 RBC 4.31 (3.98-5.22) M/mm3 Hgb 13.4 (11.2-15.7) gm/dl Hct 39.8 (34.1-44.9) % MCV 92.3 (79.4-94.8) fl MCH 31.1 (25.6-32.2) pg MCHC 33.7 (32.2-35.5) g/dl RDW Std Deviation 54.6 H (36.4-46.3) fL Plt Count 153 L (182-369) K/mm3 MPV 10.1 (9.4-12.3) fl Neut % (Auto) 77.0 H (34.0-71.1) % Lymph % (Auto) 15.0 L (19.3-51.7) % Thayer % (Auto) 6.5 (4.7-12.5) % Eos % (Auto) 0.6 L (0.7-5.8) Baso % (Auto) 0.2 (0.1-1.2) % Neut # (Auto) 7.78 H (1.56-6.13) K/mm3 Lymph # (Auto) 1.51 (1.18-3.74) K/mm3 Thayer # (Auto) 0.66 H (0.24-0.36) K/mm3 Eos # (Auto) 0.06 (0.04-0.36) K/mm3 Baso # (Auto) 0.02 (0.01-0.08) K/mm3 RPR Non-reactive (NONREACTIVE) SARS-CoV-2 RNA (TOÑA) Negative (NEGATIVE) Med Orders - Current: Current Medications Acetaminophen (Acetaminophen 325 Mg Tab) 650 mg PO Q4H PRN PRN Reason: mild pain or fever Last Admin: 02/07/21 00:56 Dose: 650 mg Documented by: Benzocaine/Menthol (Benzocaine/Menthol 20%-0.5% [place] 78 Gm Cannister) 0 gm TOP ASDIRECTED PRN PRN Reason: Perineal Comfort Measure Last Admin: 02/06/21 16:15 Dose: 1 canister Documented by: Calcium Carbonate/Glycine (Calcium Carbonate 500 Mg Tab.Chew) 1,000 mg PO Q2H PRN PRN Reason: Indigestion Last Admin: 02/06/21 22:30 Dose: 1,000 mg Documented by: Docusate Sodium (Docusate Sodium 100 Mg Cap) 100 mg PO BID PRN PRN Reason: Constipation Ibuprofen (Ibuprofen 600 Mg Tab) 600 mg PO Q4H PRN PRN Reason: Mild pain or fever Last Admin: 02/07/21 04:29 Dose: 600 mg Documented by: Prenat Multivit/Music Manager/Iron/Folic Ac ( Multivitamin With Calcium/Folic Acid/Iron Tab) 1 each PO DAILY [facility] Monty Maguire (Witch Ting Medicated Pads 40/Jar) 1 pad TOP ASDIRECTED PRN PRN Reason: Perineal Comfort Measure Discontinued Medications Diphenhydramine HCl (Diphenhydramine 50 Mg/Ml Sdv) 25 mg IVPUSH Q6H PRN PRN Reason: pruritis Ephedrine Sulfate (Ephedrine 50 Mg/Ml Sdv) 5 mg IVPUSH ASDIRECTED PRN PRN Reason: Hypotension Fentanyl (Fentanyl 100 Mcg/2 Ml Sdv) 100 mcg EPIDUR Q3H PRN PRN Reason: Pain Last Admin: 02/06/21 12:21 Dose: 100 mcg Documented by: Fentanyl/Bupivacaine HCl (Bupivacaine/Fentanyl/Ns 100 Ml Bag) 100 ml EPIDUR ASDIRECTED PRN PRN Reason: Pain Last Admin: 02/06/21 12:21 Dose: 100 ml Documented by: Lactated Ringer's (Ringers, Lactated) 1,000 mls @ 100 mls/hr IV ASDIRECTED RADHA Last Admin: 02/06/21 12:20 Dose: 100 mls/hr Documented by: Oxytocin/Lactated Ringer's (Pitocin In Lr 10 Units/1,000 Ml) 10 unit in 1,000 mls @ 500 mls/hr IV .CONTINUOUS RADHA Last Admin: 02/06/21 14:04 Dose: 500 mls/hr Documented by: Sodium Chloride (Sodium Chloride 0.9% 10 Ml Syringe) 10 ml FLUSH ASDIRECTED PRN PRN Reason: Keep Vein Open
[2021-02-07] MEDS ORDERED: Prenatal Multivitamin with Calcium/Folic Acid/Iron Tab PO SCH (09:00)
== END 2021-02-07 14:45 | disposition home or self-care (01) | DRG 807 ==
LOC: JD.OB 10:23 → JD.OBCHECK 10:23 → JD.OB 11:20 → OBSVTOIN 14:33 → JD.OB 14:34
PROVIDERS: ADMIT Obstetrics & Gynecology; ATTEND Obstetrics & Gynecology
PROC: 10E0XZZ Delivery of Products of Conception, External Approach (ICD-10-PCS; principal; 2021-02-06)
PROC: 10907ZC Drainage of Amniotic Fluid, Therapeutic from Products of Conception, Via Natural or Artificial Opening (ICD-10-PCS; 2021-02-06)
PROC: 3E0R3BZ Introduction of Anesthetic Agent into Spinal Canal, Percutaneous Approach (ICD-10-PCS; 2021-02-06)
PROC: 00HU33Z Insertion of Infusion Device into Spinal Canal, Percutaneous Approach (ICD-10-PCS; 2021-02-06)
DX: O99.62 Diseases of the digestive system complicating childbirth (principal); Z37.0 Single live birth; K21.9 Gastro-esophageal reflux disease without esophagitis; O77.0 Labor and delivery complicated by meconium in amniotic fluid; Z20.822 Contact with and (suspected) exposure to COVID-19; Z3A.39 39 weeks gestation of pregnancy; Z88.5 Allergy status to narcotic agent
CPT/HCPCS: 01967; 36415; 51701; 59025; 59409; 85025; 86592; A9270-GY; J2590; J3010; J7120; U0002

== ENCOUNTER 2022-06-25 22:24 | Emergency (ER) | payer MEDICARE, MEDICAID ==
[2022-06-26 02:18] LABS: C. TRACHOMATIS BY PCR NOT DETECTED; N. GONORRHOEAE BY PCR NOT DETECTED
[2022-06-26] MEDS ORDERED: metroNIDAZOLE 500 MG Tab PO ONE (03:33)
== END 2022-06-26 05:04 | disposition home or self-care (01) ==
LOC: JD.ED 22:24
DX: O20.0 Threatened abortion (principal); Z88.5 Allergy status to narcotic agent; Z3A.01 Less than 8 weeks gestation of pregnancy
CPT/HCPCS: 36415; 81001; 84702; 85025; 86850; 86900; 86901; 87086; 87210; 87491; 87591; 87808; 99284; A9270; J2790; 99283

== ENCOUNTER 2023-01-29 01:20 | Inpatient (IN) | payer BC, MEDICARE ==
[2023-01-29] MEDS ORDERED: Lidocaine 1% 50 ML MDV INJECT PRN (03:51)
[2023-01-29] MEDS ORDERED: Ondansetron 4 MG/2 ML SDV IVPUSH PRN ×2 (03:51→04:32)
[2023-01-29] MEDS ORDERED: Nalbuphine HCl 10 MG/ 1ML Amp IVPUSH PRN (03:51)
[2023-01-29] MEDS ORDERED: Sodium Chloride 0.9% 10 ML Syringe FLUSH PRN ×2 (03:51→04:28)
[2023-01-29] MEDS ORDERED: Lactated Ringers 1,000 ML IV SCH ×2 (04:00→04:30)
[2023-01-29 04:09] LABS: BASOPHILS ABSOLUTE AUTO 0.1 K/mm3 (0.0-0.2); BASOPHILS PERCENT AUTO 0.5 % (0.0-1.0); EOSINOPHILS ABSOLUTE AUTO 0.1 K/mm3 (0.0-0.4); EOSINOPHILS PERCENT AUTO 0.5 % (0.0-6.0); HEMATOCRIT 38.3 % (37.0-47.0); IMMATURE GRAN ABSOLUTE AUTO 0.07 K/mm3 (0.00-0.05); IMMATURE GRAN PERCENT AUTO 0.7 % (0.0-0.4); LYMPHOCYTES ABSOLUTE AUTO 2.4 K/mm3 (1.0-4.8); LYMPHOCYTES PERCENT AUTO 25.1 % (24.0-44.0); MEAN CORPUSCULAR HEMOGLOBIN 31.9 pg (28.0-32.0); MEAN CORPUSCULAR HGB CONC 33.9 g/dl (32.0-36.0); MEAN CORPUSCULAR VOLUME 94.1 fl (83.0-99.0); MEAN PLATELET VOLUME 10.8 fl (9.4-12.3); MONOCYTES ABSOLUTE AUTO 0.5 K/mm3 (0.0-0.8); MONOCYTES PERCENT AUTO 5.2 % (0.0-8.0); NEUTROPHILS ABSOLUTE AUTO 6.5 K/mm3 (1.8-7.7); PLATELET COUNT,PLT 151 K/mm3 (150-400); RED BLOOD CELL COUNT 4.07 M/mm3 (4.10-5.30); WHITE BLOOD CELL COUNT,WBC 9.58 K/mm3 (3.9-11.3)
[2023-01-29] MEDS ORDERED: Metoclopramide 10 MG/2 ML SDV IVPUSH ONE (04:28)
[2023-01-29] MEDS ORDERED: Citric Acid/Sodium Citrate Solution 30 ML Cup PO ONE (04:28)
[2023-01-29] MEDS ORDERED: ceFAZolin 1 GM in Sodium Chloride 0.9% 50 ML IV ONE (04:28)
[2023-01-29] MEDS ORDERED: Meperidine 50 MG/ML Vial IVPUSH PRN (04:32)
[2023-01-29] MEDS ORDERED: fentaNYL 100 MCG/2 ML SDV IVPUSH PRN (04:32)
[2023-01-29] MEDS ORDERED: diphenhydrAMINE 50 MG/ML SDV IVPUSH PRN ×2 (04:32→07:26)
[2023-01-29] MEDS ORDERED: Oxytocin 10 Units/1 ML SDV ONE (05:09)
[2023-01-29] MEDS ORDERED: Lactated Ringers 2,000 ML ONE (05:09)
[2023-01-29] MEDS ORDERED: Ketorolac 30 MG/ML SDV ONE (05:09)
[2023-01-29] MEDS ORDERED: Ondansetron 4 MG/2 ML SDV ONE (05:09)
[2023-01-29] MEDS ORDERED: Morphine PF 10 MG/10 ML SDV ONE (05:10)
[2023-01-29] MEDS ORDERED: ePHEDrine 50 MG/ML SDV ONE (05:12)
[2023-01-29] MEDS ORDERED: Dexamethasone 4 MG/ML SDV ONE (05:14)
[2023-01-29] MEDS ORDERED: Bupivacaine 0.5% 30 ML SDV ONE (05:51)
[2023-01-29] MEDS ORDERED: ceFAZolin 2 GM Vial ONE (05:56)
[2023-01-29] MEDS ORDERED: ePHEDrine 50 MG/ML SDV IVPUSH PRN (07:26)
[2023-01-29] MEDS ORDERED: Naloxone 0.4 MG/ML SDV IVPUSH PRN (07:26)
[2023-01-29] MEDS ORDERED: Dextrose 5%-Lactated Ringers 1,000 ML IV SCH (07:26)
[2023-01-29] MEDS ORDERED: Acetaminophen 325 MG Tab PO PRN (07:26)
[2023-01-29] MEDS ORDERED: Sodium Chloride 0.9% 10 ML Syringe FLUSH SCH ×2 (09:00)
[2023-01-29] MEDS ORDERED: Ketorolac 30 MG/ML SDV IVPUSH SCH (11:00)
[2023-01-29] MEDS: Ketorolac 30 MG/ML SDV IVPUSH SCH (19:46)
[2023-01-29] MEDS: Acetaminophen/oxyCODONE 325-5 MG Tab PO PRN (22:07)
[2023-01-30] MEDS: Ketorolac 30 MG/ML SDV IVPUSH SCH (01:43)
[2023-01-30] MEDS: Acetaminophen/oxyCODONE 325-5 MG Tab PO PRN ×4 (05:41→22:21)
[2023-01-30 05:48] LABS: BASOPHILS PERCENT AUTO 0.4 % (0.0-1.0); EOSINOPHILS ABSOLUTE AUTO 0.1 K/mm3 (0.0-0.4); EOSINOPHILS PERCENT AUTO 0.6 % (0.0-6.0); HEMATOCRIT 28.4 % (37.0-47.0); IMMATURE GRAN ABSOLUTE AUTO 0.09 K/mm3 (0.00-0.05); IMMATURE GRAN PERCENT AUTO 0.9 % (0.0-0.4); LYMPHOCYTES ABSOLUTE AUTO 2.3 K/mm3 (1.0-4.8); LYMPHOCYTES PERCENT AUTO 22.7 % (24.0-44.0); MEAN CORPUSCULAR HGB CONC 33.1 g/dl (32.0-36.0); MEAN CORPUSCULAR VOLUME 96.6 fl (83.0-99.0); MEAN PLATELET VOLUME 10.7 fl (9.4-12.3); MONOCYTES ABSOLUTE AUTO 0.5 K/mm3 (0.0-0.8); NEUTROPHILS PERCENT AUTO 70.4 % (41.0-71.0); PLATELET COUNT,PLT 113 K/mm3 (150-400); RED BLOOD CELL COUNT 2.94 M/mm3 (4.10-5.30); WHITE BLOOD CELL COUNT,WBC 9.96 K/mm3 (3.9-11.3)
[2023-01-30 05:54] LABS: HEMOGLOBIN 9.4 gm/dl (12.0-16.0)
[2023-01-30 09:54] LABS: APPEARANCE,URINE CLEAR (Clear); BILIRUBIN,URINE NEGATIVE (Negative); COLOR,URINE LIGHT YELLOW (Yellow); GLUCOSE,URINE NEGATIVE (Negative); KETONES,URINE NEGATIVE (Negative); LEUKOCYTE ESTERASE,URINE TRACE (Negative); NITRITE,URINE NEGATIVE (Negative); OCCULT BLOOD,URINE NEGATIVE (Negative); PH,URINE 6.5 (5.0-8.0); PROTEIN,URINE NEGATIVE (Negative); UROBILINOGEN,URINE 0.2 (0.2-1.0)
[2023-01-30 10:02] LABS: BACTERIA,URINE FEW /hpf (FEW); EPITHELIAL CELLS,URINE 0-5 /hpf (0-5); MUCUS,URINE FEW /hpf (FEW); RBC,URINE 0-5 /hpf (0-5)
[2023-01-30] MEDS: Ibuprofen 600 MG Tab PO PRN ×2 (11:20→17:40)
[2023-01-30] MEDS: Simethicone 80 MG Tab.Chew PO PRN ×2 (12:27→20:28)
[2023-01-31] MEDS: Ibuprofen 600 MG Tab PO PRN ×2 (00:05→07:59)
[2023-01-31] MEDS: Acetaminophen/oxyCODONE 325-5 MG Tab PO PRN (10:18)
== END 2023-01-31 11:08 | disposition home or self-care (01) | DRG 540 ==
LOC: JD.OBCHECK 01:20 → JD.OB 01:23 → JD.OBCHECK 03:50 → JD.OB 03:51 → OBSVTOIN 05:17 → JD.OB 05:18
PROVIDERS: ADMIT Obstetrics & Gynecology; ATTEND Obstetrics & Gynecology
PROC: 10907ZC Drainage of Amniotic Fluid, Therapeutic from Products of Conception, Via Natural or Artificial Opening (ICD-10-PCS; 2023-01-29)
PROC: 3E0334Z Introduction of Serum, Toxoid and Vaccine into Peripheral Vein, Percutaneous Approach (ICD-10-PCS; 2023-01-29)
PROC: 10D00Z1 Extraction of Products of Conception, Low, Open Approach (ICD-10-PCS; principal; 2023-01-29 04:45)
DX: O32.1XX0 Maternal care for breech presentation, not applicable or unspecified (principal); O99.214 Obesity complicating childbirth; O26.893 Other specified pregnancy related conditions, third trimester; Z37.0 Single live birth; Z3A.38 38 weeks gestation of pregnancy; Z88.5 Allergy status to narcotic agent; Z67.41 Type O blood, Rh negative
CPT/HCPCS: 36415; 36430; 51702; 59025; 81001; 85025; 85461; 86592; 86850; 86900; 86901; 87086; A9270-GY; J0690; J1100; J1200; J1885; J2274; J2405; J2590; J2765; J2790; J3490; J7120; J7121

== ENCOUNTER 2023-11-16 17:43 | Emergency (ER) | payer MEDICARE, BC, MEDICAID ==
[2023-11-16] MEDS: Cyclobenzaprine 10 MG Tab PO ONE (18:21)
[2023-11-16] MEDS: Ketorolac 60 MG/2 ML SDV IM ONE (18:21)
== END 2023-11-16 19:50 | disposition home or self-care (01) ==
LOC: JD.ED 17:43
DX: M25.512 Pain in left shoulder (principal); K21.9 Gastro-esophageal reflux disease without esophagitis; E66.9 Obesity, unspecified; Z88.5 Allergy status to narcotic agent; Z86.16 Personal history of COVID-19; Z68.36 Body mass index [BMI] 36.0-36.9, adult
CPT/HCPCS: 73030; 96372; 99283; J1885; A9270-GY

== ENCOUNTER 2024-03-07 21:28 | Emergency (ER) | payer BC, MEDICARE, MEDICAID ==
[2024-03-07 22:41] LABS: BASOPHILS ABSOLUTE AUTO 0.1 K/mm3 (0.0-0.2); BASOPHILS PERCENT AUTO 0.9 % (0.0-1.0); EOSINOPHILS ABSOLUTE AUTO 0.2 K/mm3 (0.0-0.4); EOSINOPHILS PERCENT AUTO 2.4 % (0.0-6.0); HEMATOCRIT 37.6 % (37.0-47.0); HEMOGLOBIN 12.5 gm/dl (12.0-16.0); IMMATURE GRAN ABSOLUTE AUTO 0.02 K/mm3 (0.00-0.05); IMMATURE GRAN PERCENT AUTO 0.3 % (0.0-0.4); LYMPHOCYTES ABSOLUTE AUTO 1.9 K/mm3 (1.0-4.8); LYMPHOCYTES PERCENT AUTO 30.1 % (24.0-44.0); MEAN CORPUSCULAR HEMOGLOBIN 28.4 pg (28.0-32.0); MEAN CORPUSCULAR HGB CONC 33.2 g/dl (32.0-36.0); MEAN CORPUSCULAR VOLUME 85.5 fl (83.0-99.0); MEAN PLATELET VOLUME 10.6 fl (9.4-12.3); MONOCYTES ABSOLUTE AUTO 0.4 K/mm3 (0.0-0.8); MONOCYTES PERCENT AUTO 5.6 % (0.0-8.0); NEUTROPHILS ABSOLUTE AUTO 3.9 K/mm3 (1.8-7.7); NEUTROPHILS PERCENT AUTO 60.7 % (41.0-71.0); PLATELET COUNT,PLT 210 K/mm3 (150-400); WHITE BLOOD CELL COUNT,WBC 6.38 K/mm3 (3.9-11.3)
[2024-03-07] MEDS: Penicillin V Potassium 500 MG Tab PO ONE (22:55)
[2024-03-07 23:04] LABS: APPEARANCE,URINE CLEAR (Clear); BILIRUBIN,URINE NEGATIVE (Negative); COLOR,URINE YELLOW (Yellow); GLUCOSE,URINE NEGATIVE (Negative); KETONES,URINE NEGATIVE (Negative); LEUKOCYTE ESTERASE,URINE TRACE (Negative); NITRITE,URINE NEGATIVE (Negative); OCCULT BLOOD,URINE NEGATIVE (Negative); PH,URINE 6.5 (5.0-8.0); PROTEIN,URINE NEGATIVE (Negative)
[2024-03-07 23:05] LABS: A/G RATIO 1.2 (1-2); ALANINE AMINOTRANSFERASE,ALT 14 U/L (14-59); ALBUMIN 3.5 g/dl (3.4-5.0); ALKALINE PHOSPHATASE 95 U/L (46-116); ANION GAP 13.5 (5-15); ASPARTATE AMNIOTRANSFERASE,AST 8 U/L (15-37); BILIRUBIN TOTAL 0.6 mg/dL (0.2-1.0); BLOOD UREA NITROGEN,BUN 16 mg/dL (7-18); CALCIUM 8.7 mg/dL (8.5-10.1); CARBON DIOXIDE,CO2 27 mEq/L (21-32); CHLORIDE,CL 107 mEq/L (98-107); EST CRCL DRUG DOSING (CG) 68.45 mL/min; ESTIMATED GFR 76 mL/min (>60); GLUCOSE RANDOM 99 mg/dL (70-99); POTASSIUM,K 3.5 mEq/L (3.5-5.1); PROTEIN TOTAL,TP 6.5 g/dl (6.4-8.2); SODIUM,NA 144 mEq/L (136-145)
[2024-03-07 23:17] LABS: BACTERIA,URINE FEW /hpf (FEW); MUCUS,URINE FEW /hpf (FEW); RBC,URINE 0-5 /hpf (0-5)
[2024-03-07 23:18] LABS: TROPONIN I HIGH SENSITIVITY < 4 pg/mL (<=51)
== END 2024-03-08 01:40 | disposition home or self-care (01) ==
LOC: JD.ED 21:28
DX: F41.0 Panic disorder [episodic paroxysmal anxiety] (principal); K04.7 Periapical abscess without sinus; E66.9 Obesity, unspecified; Z68.33 Body mass index [BMI] 33.0-33.9, adult; Z86.16 Personal history of COVID-19; Z90.49 Acquired absence of other specified parts of digestive tract; Z88.5 Allergy status to narcotic agent; Z79.899 Other long term (current) drug therapy
CPT/HCPCS: 36415; 71046; 80053; 81001; 81025; 84484; 85025; 87086; 93005; 99285; A9270; 93010; 99284

== ENCOUNTER 2024-04-20 09:14 | Emergency (ER) | payer MEDICARE, MEDICAID ==
[2024-04-20] MEDS ORDERED: Naloxone 0.4 MG/ML SDV IVPUSH PRN (09:31)
[2024-04-20] MEDS: fentaNYL 100 MCG/2 ML SDV IVPUSH ONE (09:51)
[2024-04-20] MEDS: Ondansetron 4 MG/2 ML SDV IVPUSH ONE (09:51)
[2024-04-20] MEDS: Sodium Chloride 0.9% 1,000 ML IV ONE (09:51)
[2024-04-20] MEDS: Ketorolac 30 MG/ML SDV IVPUSH ONE (09:51)
[2024-04-20] MEDS: Sodium Chloride 0.9% 10 ML Syringe FLUSH ONE (09:52)
[2024-04-20 10:02] LABS: APPEARANCE,URINE CLEAR (Clear); BILIRUBIN,URINE NEGATIVE (Negative); COLOR,URINE YELLOW (Yellow); GLUCOSE,URINE NEGATIVE (Negative); KETONES,URINE NEGATIVE (Negative); LEUKOCYTE ESTERASE,URINE NEGATIVE (Negative); NITRITE,URINE NEGATIVE (Negative); OCCULT BLOOD,URINE 2+ (Negative); PROTEIN,URINE NEGATIVE (Negative); UROBILINOGEN,URINE 0.2 (0.2-1.0)
[2024-04-20] MEDS: Iopamidol 612 MG/ML 100 ML Bottle IVPUSH ONE (10:02)
[2024-04-20 10:06] LABS: BASOPHILS PERCENT AUTO 0.6 % (0.0-1.0); EOSINOPHILS ABSOLUTE AUTO 0.1 K/mm3 (0.0-0.4); EOSINOPHILS PERCENT AUTO 1.8 % (0.0-6.0); HEMATOCRIT 43.2 % (37.0-47.0); HEMOGLOBIN 14.5 gm/dl (12.0-16.0); IMMATURE GRAN ABSOLUTE AUTO 0.04 K/mm3 (0.00-0.05); IMMATURE GRAN PERCENT AUTO 0.6 % (0.0-0.4); LYMPHOCYTES PERCENT AUTO 27.6 % (24.0-44.0); MEAN CORPUSCULAR HEMOGLOBIN 28.4 pg (28.0-32.0); MEAN CORPUSCULAR HGB CONC 33.6 g/dl (32.0-36.0); MEAN CORPUSCULAR VOLUME 84.5 fl (83.0-99.0); MEAN PLATELET VOLUME 10.9 fl (9.4-12.3); MONOCYTES ABSOLUTE AUTO 0.5 K/mm3 (0.0-0.8); MONOCYTES PERCENT AUTO 7.3 % (0.0-8.0); NEUTROPHILS ABSOLUTE AUTO 4.4 K/mm3 (1.8-7.7); NEUTROPHILS PERCENT AUTO 62.1 % (41.0-71.0); PLATELET COUNT,PLT 204 K/mm3 (150-400); RED BLOOD CELL COUNT 5.11 M/mm3 (4.10-5.30); WHITE BLOOD CELL COUNT,WBC 7.11 K/mm3 (3.9-11.3)
[2024-04-20 10:14] LABS: BACTERIA,URINE MODERATE /hpf (FEW); MUCUS,URINE FEW /hpf (FEW)
[2024-04-20 10:29] LABS: A/G RATIO 1.1 (1-2); ALANINE AMINOTRANSFERASE,ALT 19 U/L (14-59); ALKALINE PHOSPHATASE 112 U/L (46-116); ANION GAP 11.5 (5-15); ASPARTATE AMNIOTRANSFERASE,AST 8 U/L (15-37); BILIRUBIN TOTAL 0.6 mg/dL (0.2-1.0); BLOOD UREA NITROGEN,BUN 15 mg/dL (7-18); CALCIUM 9.2 mg/dL (8.5-10.1); CARBON DIOXIDE,CO2 28 mEq/L (21-32); CHLORIDE,CL 104 mEq/L (98-107); CREATINE KINASE,CK 41 U/L (26-192); ESTIMATED GFR 76 mL/min (>60); GLUCOSE RANDOM 98 mg/dL (70-99); LIPASE 77 U/L (16-77); POTASSIUM,K 3.5 mEq/L (3.5-5.1); PROTEIN TOTAL,TP 7.5 g/dl (6.4-8.2); SODIUM,NA 140 mEq/L (136-145)
== END 2024-04-20 12:03 | disposition home or self-care (01) ==
LOC: JD.ED 09:14
DX: G89.18 Other acute postprocedural pain (principal); R10.9 Unspecified abdominal pain; L76.34 Postprocedural seroma of skin and subcutaneous tissue following other procedure; E66.9 Obesity, unspecified; Z88.8 Allergy status to other drugs, medicaments and biological substances; Z79.899 Other long term (current) drug therapy; Z86.16 Personal history of COVID-19; Z90.49 Acquired absence of other specified parts of digestive tract
CPT/HCPCS: 36415; 74177; 76705; 80053; 81001; 82550; 83690; 85025; 96374; 96375; 99284; J1885; J2405; J3010; J7030; Q9967

== ENCOUNTER 2024-08-28 20:46 | Emergency (ER) | payer MEDICARE, MEDICAID ==
[2024-08-28] MEDS ORDERED: Sodium Chloride 0.9% 10 ML Syringe FLUSH PRN ×2 (21:42→22:55)
[2024-08-28 21:52] LABS: APPEARANCE,URINE CLEAR (Clear); GLUCOSE,URINE NEGATIVE (Negative); OCCULT BLOOD,URINE 1+ (Negative)
[2024-08-28 22:00] LABS: SQUAMOUS EPITHELIAL CELLS,UR 0-5 /hpf (0-5)
[2024-08-28 22:16] LABS: BASOPHILS ABSOLUTE AUTO 0.0 K/mm3 (0.0-0.2); BASOPHILS PERCENT AUTO 0.5 % (0.0-1.0); EOSINOPHILS ABSOLUTE AUTO 0.1 K/mm3 (0.0-0.4); EOSINOPHILS PERCENT AUTO 1.3 % (0.0-6.0); IMMATURE GRAN ABSOLUTE AUTO 0.04 K/mm3 (0.00-0.05); IMMATURE GRAN PERCENT AUTO 0.5 % (0.0-0.4); LYMPHOCYTES ABSOLUTE AUTO 2.0 K/mm3 (1.0-4.8); LYMPHOCYTES PERCENT AUTO 23.1 % (24.0-44.0); MEAN PLATELET VOLUME 11.2 fl (9.4-12.3); MONOCYTES ABSOLUTE AUTO 0.6 K/mm3 (0.0-0.8); MONOCYTES PERCENT AUTO 6.6 % (0.0-8.0); NEUTROPHILS ABSOLUTE AUTO 5.9 K/mm3 (1.8-7.7); NEUTROPHILS PERCENT AUTO 68.0 % (41.0-71.0); NRBC ABSOLUTE 0.00 (0.00-0.02); NRBC PERCENT 0.0 % (0.0-0.2); PLATELET COUNT,PLT 179 K/mm3 (150-400); RED BLOOD CELL COUNT 4.46 M/mm3 (4.10-5.30); WHITE BLOOD CELL COUNT,WBC 8.59 K/mm3 (3.9-11.3)
[2024-08-28 22:51] LABS: A/G RATIO 1.1 (1-2); ALANINE AMINOTRANSFERASE,ALT 19.0 U/L (14-59); ASPARTATE AMNIOTRANSFERASE,AST 10.0 U/L (15-37); BILIRUBIN TOTAL 0.3 mg/dL (0.2-1.0); BLOOD UREA NITROGEN,BUN 16.0 mg/dL (7-18); CARBON DIOXIDE,CO2 23.0 mEq/L (21-32); CHLORIDE,CL 107.0 mEq/L (98-107); CREATININE 0.8 mg/dL (0.55-1.02); EST CRCL DRUG DOSING (CG) 85.56 mL/min; ESTIMATED GFR 99.0 mL/min (>60); GLUCOSE RANDOM 107.0 mg/dL (70-99); POTASSIUM,K 4.1 mEq/L (3.5-5.1); PROTEIN TOTAL,TP 6.6 g/dl (6.4-8.2); SODIUM,NA 141.0 mEq/L (136-145)
[2024-08-28] MEDS: Ketorolac 15 MG/ML SDV IVPUSH ONE (23:08)
[2024-08-28] MEDS: Iopamidol 612 MG/ML 100 ML Bottle IVPUSH ONE (23:35)
== END 2024-08-29 03:00 | disposition home or self-care (01) ==
LOC: JD.ED 20:46
DX: N13.2 Hydronephrosis with renal and ureteral calculous obstruction (principal); E66.9 Obesity, unspecified; Z88.8 Allergy status to other drugs, medicaments and biological substances; Z79.899 Other long term (current) drug therapy; Z86.16 Personal history of COVID-19; Z90.49 Acquired absence of other specified parts of digestive tract; Z68.37 Body mass index [BMI] 37.0-37.9, adult
CPT/HCPCS: 36415; 74177; 80053; 81001; 83690; 84703; 85025; 96361; 96374; 99284; J1885; J7030; Q9967